=== PATIENT | male | born 1960 | race Caucasian/White ===

== ENCOUNTER 2023-12-14 06:47 | Outpatient (OUT) | payer BC, SELFPAY ==
--- NOTE | 2023-12-14 06:53 | US_ITS ---
The [address] [address] Patient Name: ROSARIO BUSBY MRN: [id number] date: 1960 Sex: M Assigned Patient Location: US Current Patient Location: US Accession/Order Number: [id number] Exam Date: 12/14/2023 07:00 Report Date: 12/14/2023 07:49 At the request of: MARIZOL SARABIA Procedure: US renal BI EXAM: US renal BI HISTORY: Hematuria, History Of Kidney Stones, Flank Pain COMPARISON: CT abdomen pelvis 04/18/2021. TECHNIQUE: Real-time ultrasound imaging of the kidneys and bladder. Findings: The right and left kidneys measure 11.8 and 11.3 cm. There is good corticomedullary differentiation bilaterally. There are nonobstructing bilateral renal stones. The largest is within the right and left kidneys measure 0.6 x 0.4 and 0.8 x 0.6 cm. No renal collecting system dilatation bilaterally. No focal mass or perinephric fluid collection. The bladder is fluid-filled with a prevoid volume of 184 mL. Unremarkable bladder. Impression 1. Nonobstructing bilateral renal stones. Electronically authenticated by: CASSANDRA RAMIREZ Date: 12/14/2023 07:49
--- NOTE | 2023-12-14 06:54 | XR_ITS ---
The [address] [address] Patient Name: ROSARIO BUSBY MRN: [id number] date: 1960 Sex: M Assigned Patient Location: US Current Patient Location: US Accession/Order Number: [id number] Exam Date: 12/14/2023 07:14 Report Date: 12/14/2023 10:45 At the request of: MARIZOL SARABIA Procedure: XR abdomen 1V EXAM: XR abdomen 1V HISTORY: Hematuria, History Of Kidney Stones, Flank Pain COMPARISON: None. TECHNIQUE: AP view of the abdomen. FINDINGS: Nonobstructive bowel gas pattern is noted. There is no suspicious calcification. The osseous structures are intact. XR/XR abdomen 1V IMPRESSION: Nonobstructive bowel gas pattern. No suspicious renal calcification. Electronically authenticated by: DEEJAY BROWN Date: 12/14/2023 10:45
== END 2023-12-14 06:48 | disposition home or self-care (01) ==
LOC: US 06:47
PROVIDERS: PCP Internal Medicine; Visit Provider Physician Assistant
DX: R31.9 Hematuria, unspecified (principal); Z87.442 Personal history of urinary calculi; R10.9 Unspecified abdominal pain; N20.0 Calculus of kidney
CPT/HCPCS: 74018; 76775

== ENCOUNTER 2024-01-05 13:46 | Emergency (ER) | payer BC, SELFPAY ==
[2024-01-05 13:50] VITALS: BP 142/90; PULSE 75; TEMP 36.6; O2SAT 99; BMI 28.2
[2024-01-05 14:26] LABS: Bilirubin Urine SMALL (NEGATIVE); Blood Urine LARGE (NEGATIVE); Clarity Urine CLOUDY (CLEAR); Color Urine DK. BROWN (YELLOW); Glucose Urine UA NEGATIVE (NEGATIVE); Ketones Urine NEGATIVE (NEGATIVE); Leukocyte Esterase Urine NEGATIVE (NEGATIVE); Nitrite Urine NEGATIVE (NEGATIVE); Protein Urine 100 mg/dL (NEG/TRACE)
[2024-01-05 14:29] LABS: Urine Microscopic Indicated YES
[2024-01-05 14:57] LABS: Bacteria Urine SMALL #/HPF (NONE SEEN); Cast Seen? NONE SEEN #/LPF (NONE SEEN); Crystals Seen? None Seen #/HPF (None Seen); Mucus Urine NONE SEEN (NONE SEEN); RBC Urine 75-100 #/HPF (0-2); Squamous Epithelial Cell Urine RARE #/LPF (NONE/RARE); Urine Culture Indicated YES
--- NOTE | 2024-01-05 21:22 | ED.GENADUL1 ---
HPI HPI - General Adult General Chief complaint: Urogenital-Male Stated complaint: BLOOD IN URINE Time Seen by Provider: 01/05/24 15:24 Source: patient Mode of arrival: walk-in Limitations: no limitations History of Present Illness HPI narrative: Patient is a 63-year-old male who is presenting to the Emergency Room with chief complaint of hematuria this morning. Patient states that he was doing some heavy lifting yesterday, patient had an episode of darker urine this morning And they cleared up On its own. Patient says this has happened twice in the past 4 years. patient believes that he does some heavy lifting, he will have some hematuria, and then it clears up. This is happened twice in the last 4 years. 4 years ago patient had hematuria, and a cystoscopy done by Dr. Case. Dr. Case had noticed the reflux in his ureter, and noticed infection at that time. Patient's chief concern today is that with his hematuria, he was hoping to check his urine for infection, But he ultimately wants to receive an antibiotic Because he is afraid of what happened 4 years ago, and also a work note because he did not go to work today. His 2 chief concern her work note and being prescribed an antibiotic. Patient initially was refusing any type of IV, lab work, CAT scan or any type of imaging. Patient has an appointment in Dr. Case office in February. Patient is also been having intermittent right groin pain for a long time, patient had a hernia incision repair over 20 years ago. Patient feels like he keeps getting his chronic right lower inguinal/groin pain blown off and has not seen a surgeon her specialist in the past 20 years. Patient has no new signs of hernia at this time. No pain to testicles. . Nurses note and vital signs reviewed and patient is not hypoxic. General: The patient appears well and in no apparent distress. Patient is resting comfortably on cart. Patient is not toxic, lethargic, or listless Skin: Warm, dry, no pallor noted. There is no rash noted. No petechiae, purpura. Head: Normocephalic, atraumatic Eye: Normal conjunctiva, no drainage, EOMI. PERRL Ears, Nose, Mouth, and Throat: oral mucosa is moist. Nares patent. Mouth without vesicles. Cardiovascular: Regular Rate and Rhythm, no murmur, gallop, rub Respiratory: Patient is in no distress, no accessory muscle use, lungs are clear to auscultation, no wheezing, rales or rhonchi Back: non-tender, no CVA tenderness bilaterally to percussion. No CT LS midline pain GI: soft, Patient has mild tenderness to palpation to the right inguinal area above his right ASIS, no signs of direct or indirect hernia. Patient has no tenderness to palpation of bilateral testicles, no signs of indirect hernia. Patient has no flank pain bilateral, no CVA tenderness bilateral. Otherwise patient has no tenderness to palpation, no masses appreciated. No rebound, guarding, or rigidity noted. No flank pain bilateral, No distention Musculoskeletal: Patient has full range of motion of all of the extremities, no motor, sensory, or focal neurological deficits Neurological: A&O x3, normal speech Psychiatric: Cooperative Related Data Allergies Allergy/AdvReac Type Severity Reaction Status Date / Time amoxicillin Allergy Severe Verified 01/05/24 13:50 cephalexin [From Keflex] AdvReac Severe Verified 01/05/24 13:50 Opioid HPI Opioid Management Most Recent Opioid Data: No Data to Display Exam Constitutional Vital Signs, click to edit/add: Last Vital Signs Temp 98 F 01/05/24 13:50 Pulse 75 01/05/24 13:50 Resp 20 01/05/24 13:50 BP 142/90 H 01/05/24 13:50 Pulse Ox 99 01/05/24 13:50 O2 Del Method Room Air 01/05/24 13:50 Course Vital Signs Vital signs: Vital Signs Temperature 98 F 01/05/24 13:50 Pulse Rate 75 01/05/24 13:50 Respiratory Rate 20 01/05/24 13:50 Blood Pressure 142/90 H 01/05/24 13:50 Pulse Oximetry 99 01/05/24 13:50 Oxygen Delivery Method Room Air 01/05/24 13:50 Temperature 98 F 01/05/24 13:50 Pulse Rate 75 01/05/24 13:50 Respiratory Rate 20 01/05/24 13:50 Blood Pressure 142/90 H 01/05/24 13:50 Pulse Oximetry 99 01/05/24 13:50 Oxygen Delivery Method Room Air 01/05/24 13:50 Medical Decision Making MDM Narrative Medical decision making narrative: Patient urine shows hematuria with no acute infection. Patient still is refusing any type of IV, lab work, CAT scans. Patient was referred to surgery for reevaluation for possible chronic hernia or groin strain. Patient allowed me to send a text to Dr. Case which I did About his name and is in the Emergency Room in hopes to follow-up sooner in the office then February. There is no acute indication for antibiotic at this time, patient understands. Patient was given a work note. Patient will follow-up with PCP or Dr. Case. Patient Returned back to the Emergency Room. Intractable pain, nausea, vomiting, difficulty urination or any other acute concerns. Patient is playful for help and time spent at bedside and listening to his right groin pain medicine chronic And feels like nobody done anything for 70 today. Lab Data Labs: Lab Results 01/05/24 Range/Units 12:45 Urine Color Dk. brown (YELLOW) Urine Clarity Cloudy A (CLEAR) Urine pH 8.0 (5.0-9.0) Ur Specific [place] 1.020 (1.005-1.025) Urine Protein 100 A (NEG/TRACE) mg/dL Urine Glucose (UA) Negative (NEGATIVE) mg/dL Urine Ketones Negative (NEGATIVE) mg/dL Urine Occult Blood Large A (NEGATIVE) Urine Nitrite Negative (NEGATIVE) Urine Bilirubin Small A (NEGATIVE) Urine Urobilinogen 1.0 (0.2-1.0) EU/dL Ur Leukocyte Esterase Negative (NEGATIVE) Urine RBC 75-100 A (0-2) #/HPF Urine WBC 2-5 A (NONE SEEN) #/HPF Ur Squamous Epith Cells Rare (NONE/RARE) #/LPF Urine Crystals None seen (None Seen) #/HPF Urine Bacteria Small A (NONE SEEN) #/HPF Urine Casts None seen (NONE SEEN) #/LPF Urine Mucus None seen (NONE SEEN) Ur Culture Indicated? Yes Discharge Plan Discharge Stand Alone Forms: Work/School Release, Portal Instructions Chief Complaint: Urogenital-Male Clinical Impression: Hematuria, Tobacco abuse, Chronic pain of right groin Patient Disposition: Home, Self-Care Time of Disposition Decision: 15:47 Condition: Fair Print Language: Belarusian Instructions: How to Stop Smoking (ED), Hematuria (ED), Groin Strain (ED), Groin Pain (ED) Additional Instructions: We had discussed right inguinal pain/strain, sports hernia, painless hematuria, possibility of bladder cancer with history of tobacco abuse. I have given Dr. Case your information to try and get you into the office sooner. Call the office to follow-up sooner than February for painless hematuria. Work note has been given. No acute indication for antibiotic at this time, urine culture is pending. Referrals: JILL SEE MD [Primary Care Provider] - 1 week Jorge Gordon MD [Physician] - 1 week Shawn Case MD [Physician] - 1 week Discharge Date/Time: 01/05/24 15:57
== END 2024-01-05 15:57 | disposition home or self-care (01) ==
PROVIDERS: Emergency Provider Emergency Medicine; PCP Internal Medicine
DX: R31.9 Hematuria, unspecified (principal); R10.31 Right lower quadrant pain; F17.210 Nicotine dependence, cigarettes, uncomplicated
CPT/HCPCS: 81001; 87086; 99283

== ENCOUNTER 2024-01-13 07:33 | Outpatient (OUT) | payer BC, SELFPAY ==
--- NOTE | 2024-01-13 07:48 | CT_ITS ---
[address] [address] Patient Name: ROSARIO BUSBY MRN: [id number] date: 1960 Sex: M Assigned Patient Location: LAB Current Patient Location: LAB Accession/Order Number: [id number] Exam Date: 01/13/2024 08:05 Report Date: 01/13/2024 08:56 At the request of: STEPHANIA BRADSHAW Procedure: CT abdomen pelvis wo/w con EXAMINATION: CT abdomen pelvis wo/w con HISTORY: Flank Pain, Hematuria , right groin pain COMPARISON: CT abdomen pelvis 04/18/2021 TECHNIQUE: Axial, Coronal, and Sagittal images were obtained without and/or with IV contrast as indicated by examination type. Dose reduction techniques were achieved by using automated exposure control and/or adjustment of mA and/or kV according to patient size and/or use of iterative reconstruction technique. FINDINGS: LUNG BASES: No visible pulmonary or pleural disease. LIVER: No enlargement, atrophy, suspicious density, or significant focal lesion. BILIARY: No dilatation or calcification. PANCREAS: No lesion, fluid collection, or abnormal duct dilatation. SPLEEN: No enlargement or focal lesion. ADRENALS: No mass or enlargement. KIDNEYS: 1 mm nonobstructing stone within right kidney. 5 mm nonobstructing stone within left kidney. No ureteral stones. No mass, cyst, or significant atrophy. BOWEL/MESENTERY: Diverticulosis of distal colon without acute inflammatory changes. No visible mass, obstruction, or bowel wall thickening. Normal appendix. AORTA/VASCULAR: No aneurysm or dissection. RETROPERITONEUM: No mass or adenopathy. LYMPH NODES: No adenopathy. URINARY BLADDER: No visible focal wall thickening, lesion, or calculus. PELVIC ORGANS: No visible mass. Pelvic organs appropriate for patient age. ABDOMINAL WALL: Small fat filled left inguinal hernia without strangulation. Tiny fat filled umbilical hernia without strangulation. BONES: No bony lesion or fracture. OTHER: Negative. CT/CT abdomen pelvis wo/w con IMPRESSION: 1. Bilateral nonobstructing nephrolithiasis. 2. No acute or suspicious right groin findings to account for patient's symptoms. Electronically authenticated by: JOYCELYN BARR Date: 01/13/2024 08:56
[2024-01-13 07:50] LABS: Basophils Absolute Auto 0.1 10^3/uL (0.0-0.1); Basophils Percent Auto 0.8 % (0.2-2.0); Eosinophils Absolute Auto 0.5 10^3/uL (0.0-0.7); Hematocrit 44.5 % (42.0-54.0); Hemoglobin 14.8 g/dL (14.0-18.0); Immature Granulocytes Abs Auto 0.06 10^3/uL (0.00-0.03); Immature Granulocytes Pct Auto 0.4 % (0.0-0.5); Lymphocytes Absolute Auto 3.1 10^3/uL (1.2-3.8); Lymphocytes Percent Auto 19.3 % (20.5-60.0); Mean Corpuscular HGB Conc 33.3 g/dL (29.9-35.2); Mean Corpuscular Hemoglobin 30.5 pg (25.9-34.0); Mean Corpuscular Volume 91.8 fL (80.0-94.0); Mean Platelet Volume 9.2 fL (9.5-13.5); Monocytes Absolute Auto 1.4 10^3/uL (0.3-0.8); Monocytes Percent Auto 8.8 % (1.7-12.0); Neutrophils Absolute Auto 10.7 10^3/uL (1.4-6.5); Neutrophils Percent Auto 67.7 % (43.0-75.0); Platelet Count 276 10^3/uL (150-450); Red Blood Count 4.85 10^6/uL (4.70-6.10); Red Cell Distribution Width 14.7 % (11.0-15.0); White Blood Count 15.8 10^3/uL (4.0-11.0)
[2024-01-13 07:55] LABS: Anion Gap 13.4; BUN Creatinine Ratio 13.9; Calcium 9.1 mg/dL (8.5-10.1); Carbon Dioxide 27.4 mmol/L (21.0-32.0); Chloride 101 mmol/L (98-107); Estimated GFR (African America >60 (>=60); Estimated GFR (Non-African Ame >60 (>=60); Glucose 99 mg/dL (74-106); Potassium 4.8 mmol/L (3.5-5.1); Sodium 137 mmol/L (136-145)
== END 2024-01-13 07:34 | disposition home or self-care (01) ==
LOC: LAB 07:34
PROVIDERS: PCP Internal Medicine; Visit Provider Nurse Practitioner
DX: R10.9 Unspecified abdominal pain (principal); R31.9 Hematuria, unspecified; N20.0 Calculus of kidney
CPT/HCPCS: 36415; 74178; 80048; 85025; Q9967

== ENCOUNTER 2024-01-25 09:20 | Outpatient (OUT) | payer BC, SELFPAY ==
--- NOTE | 2024-01-25 10:01 | ECG_ITS ---
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
--- NOTE | 2024-01-25 10:20 | XR_ITS ---
The [address] [address] Patient Name: ROSARIO BUSBY MRN: [id number] date: 1960 Sex: M Assigned Patient Location: [facility] Current Patient Location: [facility] Accession/Order Number: [id number] Exam Date: 01/25/2024 10:33 Report Date: 01/25/2024 11:11 At the request of: CHERYL HENDERSON Procedure: XR chest 2V EXAMINATION: XR chest 2V HISTORY: Preop exam COMPARISON: 05/13/2021 TECHNIQUE: PA and lateral FINDINGS: LUNGS: Low lung volumes. Minimal linear opacities in the right lower lobe and lingula. Focal nodule in the lung base seen only on the lateral projection, size and density suggests granuloma VASCULATURE: No increased pulmonary vasculature. PLEURA: No pneumothorax, effusion, or pleural thickening. CARDIAC: No cardiomegaly or cardiac silhouette abnormality. MEDIASTINUM: No visible mass or adenopathy. BONES: No fracture or visible bone lesion. OTHER: Negative. XR/XR chest 2V IMPRESSION: Minimal stable linear opacities, scar favored Electronically authenticated by: EMMANUEL ROMEO Date: 01/25/2024 11:11
--- NOTE | 2024-01-25 10:36 | PM.PRESUREVA ---
History of Present Illness History of Present Illness Chief complaint: right kidney stone Narrative: Patient presents for preadmission testing. Please see HPI from Dr. Case dated 01/21/2024. Review of Systems ROS Narrative Please see ROS from Dr. Case dated 01/21/2024. PFSH PFSH Medical History (Updated 01/25/24 @ 10:38 by Zina Chris NP) Flank pain ?R10.9 - Unspecified abdominal pain (ICD-10) Seasonal allergies ?J30.2 - Other seasonal allergic rhinitis (ICD-10) Arthritis ?M19.90 - Unspecified osteoarthritis, unspecified site (ICD-10) Back pain ?M54.9 - Dorsalgia, unspecified (ICD-10) Pneumonia ?J18.9 - Pneumonia, unspecified organism (ICD-10) Restless leg ?G25.81 - Restless legs syndrome (ICD-10) Chronic obstructive pulmonary disease ?J44.9 - Chronic obstructive pulmonary disease, unspecified (ICD-10) Kidney stones ?N20.0 - Calculus of kidney (ICD-10) GERD (gastroesophageal reflux disease) ?K21.9 - Gastro-esophageal reflux disease without esophagitis (ICD-10) S/P extracorporeal shock wave therapy ?Z98.890 - Other specified postprocedural states (ICD-10) Surgical History (Updated 01/25/24 @ 10:19 by Zina Chris NP) History of colonoscopy ?Z98.890 - Other specified postprocedural states (ICD-10) History of hernia repair ?Z98.890 - Other specified postprocedural states (ICD-10) ?Z87.19 - Personal history of other diseases of the digestive system (ICD-10) S/P cystourethroscopy with dilation of urethral stricture ?Z98.890 - Other specified postprocedural states (ICD-10) S/P cystoscopy ?Z98.890 - Other specified postprocedural states (ICD-10) S/P ureteral stent placement ?Z96.0 - Presence of urogenital implants (ICD-10) Family History (Updated 01/25/24 @ 10:19 by Zina Chris NP) Other Family history of COPD (chronic obstructive pulmonary disease) Family history of bone cancer Family history of heart disease Family history of myocardial infarction Family history of stroke Social History (Updated 01/25/24 @ 10:14 by Zina Chris NP) Within the past year, how often did you have a drink containing alcohol: 2-3 times a week Within the past year, how many standard drinks containing alcohol did you have on a typical day: 3 or 4 Smoking status: Current every day smoker What tobacco products do you use: cigarettes Packs per day: 1 Years smoked: 40 Smoking pack-years: 40.00 Non-prescribed substance use: cannabis (any form) Previous occupational history: [employer] Highest level of school completed/degree received: high school graduate Meds Home Medications and Allergies Home Medications ?Medication ?Instructions ?Recorded ?Confirmed ?Type budesonide 160 mcg-glycopyr 9 2 inh inhalation DAILY 01/25/24 01/25/24 History mcg-formot 4.8 mcg/actuation HFA inhaler (Breztri Aerosphere) oxcarbazepine 300 mg tablet 300 mg PO BID 01/25/24 01/25/24 History (Trileptal) rosuvastatin 10 mg tablet (Crestor) 10 mg PO DAILY 01/25/24 01/25/24 History Allergies Allergy/AdvReac Type Severity Reaction Status Date / Time amoxicillin Allergy Severe Rash Verified 01/25/24 10:11 cephalexin [From Keflex] Allergy Severe Rash Verified 01/25/24 10:11 Sulfa (Sulfonamide Allergy Rash Verified 01/25/24 10:11 Antibiotics) codeine AdvReac Nausea Verified 01/25/24 10:13 Exam Narrative Exam Narrative: Constitutional: Awake, alert, comfortable, well-appearing, nontoxic, interactive, vital signs as charted Head: Normocephalic, atraumatic Neck: Supple, normal appearance, normal range of motion, no meningeal signs, no lymphadenopathy Respiratory: No respiratory distress, breath sounds clear Cardiovascular: Regular rate and rhythm, strong and regular heart tones Abdomen: Nontender, normal bowel sounds, soft, mild right CVA tenderness Musculoskeletal: Normal gait, no swelling or edema Skin: No rashes or induration, no lesions, only visible skin inspected Neuro: No neurological deficits, normal sensation Psychiatric: Oriented ?3, normal affect Assessment and Plan Assessment and Plan (1) Kidney stones: (2) Hematuria: (3) Flank pain: Plan Cystoscopy, right retrograde, ureteroscopy, possible holmium laser, possible stent placement scheduled with Dr. Case 02/03/2024.
[2024-01-25 10:54] LABS: Basophils Absolute Auto 0.1 10^3/uL (0.0-0.1); Basophils Percent Auto 0.8 % (0.2-2.0); Eosinophils Absolute Auto 0.3 10^3/uL (0.0-0.7); Eosinophils Percent Auto 2.2 % (0.9-7.0); Hematocrit 43.6 % (42.0-54.0); Hemoglobin 14.9 g/dL (14.0-18.0); Immature Granulocytes Abs Auto 0.07 10^3/uL (0.00-0.03); Immature Granulocytes Pct Auto 0.5 % (0.0-0.5); Lymphocytes Absolute Auto 2.5 10^3/uL (1.2-3.8); Lymphocytes Percent Auto 17.9 % (20.5-60.0); Mean Corpuscular HGB Conc 34.2 g/dL (29.9-35.2); Mean Corpuscular Hemoglobin 30.8 pg (25.9-34.0); Mean Corpuscular Volume 90.3 fL (80.0-94.0); Mean Platelet Volume 9.1 fL (9.5-13.5); Monocytes Percent Auto 7.5 % (1.7-12.0); Neutrophils Absolute Auto 9.8 10^3/uL (1.4-6.5); Neutrophils Percent Auto 71.1 % (43.0-75.0); Platelet Count 361 10^3/uL (150-450); Red Blood Count 4.83 10^6/uL (4.70-6.10); Red Cell Distribution Width 14.5 % (11.0-15.0); White Blood Count 13.7 10^3/uL (4.0-11.0)
[2024-01-25 10:58] LABS: Anion Gap 12.2; BUN Creatinine Ratio 11.2; Calcium 9.4 mg/dL (8.5-10.1); Carbon Dioxide 25.7 mmol/L (21.0-32.0); Chloride 103 mmol/L (98-107); Estimated GFR (African America >60 (>=60); Estimated GFR (Non-African Ame >60 (>=60); Glucose 107 mg/dL (74-106); Potassium 3.9 mmol/L (3.5-5.1); Sodium 137 mmol/L (136-145)
[2024-01-25 11:01] LABS: Partial Thromboplastin Time 29.5 sec (22.3-36.2); Prothrombin Time 9.8 sec (9.0-11.6)
[2024-01-25 11:05] LABS: INR <0.93
== END 2024-01-25 09:21 | disposition home or self-care (01) ==
LOC: PST 09:20
PROVIDERS: PCP Internal Medicine; Visit Provider Urology
DX: Z01.810 Encounter for preprocedural cardiovascular examination (principal); Z01.812 Encounter for preprocedural laboratory examination; Z01.818 Encounter for other preprocedural examination; R31.0 Gross hematuria; N20.0 Calculus of kidney
CPT/HCPCS: 36415; 71046; 80048; 85025; 85610; 85730; 93005; G0463

== ENCOUNTER 2024-02-03 07:49 | Day surgery (SDC) | payer BC, SELFPAY ==
[2024-01-25 10:33] VITALS: BP 126/86; PULSE 72; TEMP 36.3; O2SAT 96; BMI 28.2
[2024-02-03] VITALS (8 sets, daily range): BP systolic 115–138; BP diastolic 81–91; PULSE 64–74; TEMP 35.9–36.5; O2SAT 93–98; BMI 27.8
--- NOTE | 2024-02-03 | XR_ITS ---
The [address] [address] Patient Name: ROSARIO BUSBY MRN: [id number] date: 1960 Sex: M Assigned Patient Location: [facility] Current Patient Location: Accession/Order Number: [id number] Exam Date: 02/03/2024 09:20 Report Date: 02/04/2024 10:02 At the request of: CHERYL HEDNERSON Procedure: XR urethrogram retrograde EXAM: XR urethrogram retrograde HISTORY: BILATERAL RETROGRADE, RIGHT STENT PLACEMENT COMPARISON: None. TECHNIQUE: FINDINGS: Intraoperative spot fluoroscopic images demonstrate retrograde filling of the right and left ureter and upper collecting systems; no appreciable stone, obstruction, stricture, or abnormal dilation. Stent placement with right ureter with proximal end coiled in the renal pelvis and distal end in urinary bladder. XR/XR urethrogram retrograde IMPRESSION: 1. Right ureteral stent placement appearing in good position. Electronically authenticated by: JOYCELYN BARR Date: 02/04/2024 10:02
--- OUTSIDE RECORDS SUMMARY | 2024-02-03 07:52 | XMS_ITS | CCD ---
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 Role Phone ESA, DR MELCHOR Primary Care Unavailable CASE, DR LUNA Attending Unavailable CASE, DR LUNA Consulting Unavailable CASE, DR LUNA Admitting Unavailable ZIEBER, DR JOYCELYN Kessler Consulting Unavailable CASE, DR LUNA Attending Unavailable VALONE, DR MELCHOR Primary Care Unavailable CASE, DR LUNA Consulting Unavailable CASE, DR LUNA Admitting Unavailable JUSTYNA, BRENDA Consulting Unavailable CASE, DR LUNA Attending Unavailable CASE, DR LUNA Admitting Unavailable VALONE, DR MELCHOR Primary Care Unavailable VALONE, DR MELCHOR Primary Care Unavailable CASE, DR LUNA Attending Unavailable CASE, DR LUNA Consulting Unavailable CASE, DR LUNA Admitting Unavailable WEST, DR EMMANUEL Reilly Consulting Unavailable ROSS, SAE Admitting Unavailable ROSS, SAE Attending Unavailable ROSS, SAE Consulting Unavailable VALONE, DR MELCHOR Primary Care Unavailable REQUEST, NONE LISTED Admitting Unavaila ble REQUEST, NONE LISTED Attending Unavaila ble REQUEST, NONE LISTED Consulting Unavaila ble VALONE, DR MELCHOR Primary Care Unavailable REQUEST, NONE LISTED Admitting Unavaila ble REQUEST, NONE LISTED Attending Unavaila ble REQUEST, NONE LISTED Consulting Unavaila ble VALONE, DR MELCHOR Primary Care Unavailable VALONE , JILL Primary Care Physician Shawn CASE Attending Unavailable CASE, Shawn Kessler Attending Unavailable CASE, Shawn Kessler Admitting Unavailable CASE, Shawn Kessler Attending Unavailable CASE, Shawn Kessler Attending Unavailable CASE, Shawn Kessler Attending Unavailable CASE, Shawn Kessler Attending Unavailable Allergies Allergy Classification Reported Allergen(s) Allergy Type Date of Onset Reaction(s) Facility (3 sources) Amoxicillin; Translations: [amoxicillin] Drug Allergy [address] [facility] Repository (2 sources) Cephalexin; Translations: [cephalexin] Drug Allergy [facility] Repository (3 sources) Codeine; Translations: [codeine] Drug Allergy [address] [facility] Repository (2 sources) Sulfonamides (Antibiotic) Drug allergy (disorder) [address] [facility] Repository (4 sources) Amoxicillin; Translations: [amoxicillin] Drug Allergy 6 Unknown [facility] (4 sources) Cephalexin; Translations: [cephalexin] Drug Allergy Unknown [facility] (4 sources) Codeine; Translations: [codeine] Drug Allergy 6 Unknown [facility] (5 sources) Pollen; Translations: [Pollen] Allergy to substance Unknown (qualifier value) [facility] (5 sources) Sulfamethoxazole ; Translations: [sulfamethoxazol e] Drug Allergy Unknown (qualifier value) [facility] (5 sources) Sulfonamides; Translations: [sulfonamides] Drug allergy Unknown (qualifier value) [facility] (5 sources) Grass; Translations: [Grass] Allergy to substance Unknown (qualifier value) [facility] Medications Current Medications Medication Drug Class(es) Dates Sig (Normalized) Sig (Original) benzonatate 100 mg oral capsule (1 source) Non-narcotic Antitussive Start: 06-30-2019 take 1 mg by mouth three times daily Tessalon 100 mg Cap mg cap(s), Oral, TID, Refills(s) 0 Start Date: 06/30/19 Status: Ordered ketorolac tromethamine 10 mg oral tablet (1 source) Nonsteroidal Anti-inflammatory Drug, Cyclooxygenase Inhibitor Start: 05-23-2021 take 1 tablet by mouth every six hours as needed for pain ketorolac 10 mg Tab 10 mg = 1 tab(s), Oral, q6hr, PRN for pain, # 10 tab(s), Refills(s) 0, called to pharmacy (Rx) Start Date: 05/23/21 Status: Ordered Trileptal (4 sources) Anti-epileptic Agent Start: 06-30-2019 Trileptal Oral, BID, Refills(s) 0 Start Date: 06/30/19 Status: Ordered Crestor (4 sources) HMG-CoA Reductase Inhibitor Start: 06-20-2019 Crestor Oral, Daily, Refills(s) 0 Start Date: 06/20/19 Status: Ordered sildenafil 100 mg oral tablet (4 sources) Phosphodiesterase 5 Inhibitor Start: 07-28-2021 sildenafil 100 mg Tab 100 mg = 1 tab(s), Oral, As Directed, 1 hour before sexual activity, # 30 tab(s), Refills(s) 2, Pharmacy: [facility], 170.2, cm, 07/28/21 10:01:00 EDT, Height/Length Dosing, 89, kg, 07/28/21 10:01:00 EDT, Weight Dosing Start Date: 07/28/21 Status: Ordered Problems Active Problems Problem Classification Problem Date Documented Da te Episodic/Chronic Abdominal pain (5 sources) Unspecified abdominal pain; Translations: [Flank pain] Onset: 05-26-2021 06-20-2019 Episodic Calculus of urinary tract (15 sources) Calculus of kidney; Translations: [Personal history of urinary calculi] Onset: 04-29-2021 07-05-2020 Episodic Disorders of lipid metabolism (5 sources) Hyperlipidemia, unspecified; Translations: [Hyperlipidemia] Onset: 06-17-2021 04-30-2021 Chronic Esophageal disorders (1 source) Gastro-esophageal reflux disease without esophagitis; Translations: [GERD WITHOUT ESOPHAGITIS] Onset: 05-26-2021 Chronic Genitourinary symptoms and ill-defined conditions (16 sources) Gross hematuria; Translations: [Blood in urine] Onset: 04-29-2021 Episodic Hyperplasia of prostate (7 sources) Benign prostatic hyperplasia without lower urinary tract symptoms; Translations: [Benign prostatic hyperplasia with lower urinary tract symptoms] Onset: 05-26-2021 06-30-2019 Chronic Immunizations and screening for infectious disease (4 sources) Encounter for immunization; Translations: [ENCOUNTER FOR IMMUNIZATION] Onset: 08-19-2021 Episodic Inflammatory conditions of male genital organs (4 sources) Prostatitis 06-20-2019 Episodic Mood disorders (5 sources) Major depressive disorder, single episode, unspecified; Translations: [Depressive disorder] Onset: 06-17-2021 04-30-2021 Chronic Other diseases of bladder and urethra (1 source) Unspecified urethral stricture, male, unspecified site; Translations: [UNSP URETHRAL STRCT MALE UNSP SITE] Onset: 06-17-2021 Episodic Other diseases of bladder and urethra (4 sources) Urethral stricture 07-05-2020 Episodic Other male genital disorders (2 sources) Male erectile dysfunction, unspecified; Translations: [Erectile dysfunction] Onset: 06-17-2021 Chronic Other male genital disorders (4 sources) Impotence 07-05-2020 Chronic Residual codes; unclassified (4 sources) Chronic back pain 06-20-2019 Episodic Substance-related disorders (6 sources) Nicotine dependence, cigarettes, uncomplicated; Translations: [Smoker] Onset: 06-17-2021 07-05-2020 Chronic Past or Other Problems Problem Classification Problem Date Documented Da te Episodic/Chronic Other aftercare (1 source) 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; Translations: [OTH AUDIOLOGY DOCTOR CURRENT DRUG THERAPY] Onset: 05-26-2021 Episodic Other diseases of kidney and ureters (1 source) Crossing vessel and stricture of ureter without hydronephrosis; Translations: [CROSSING VES STRICT URETER W/O HN] Onset: 05-26-2021 Episodic Residual codes; unclassified (1 source) Insomnia, unspecified; Translations: [INSOMNIA UNSPECIFIED] Onset: 05-26-2021 Episodic Results Test Name Value Interpretation Reference Range Facility ECG 12-Leadon 01-28-2024 ECG 12-Lead [id number] F [facility] Pre-Certification Formon Pre-Certification Form [id number] F [facility] Lab Reportson 01-26-2024 Lab Reports [id number]#[id number] F [facility] Lab Reports [id number]#[id number] F [facility] RAD - MISCon 01-26-2024 RAD - MISC [id number]#[id number] [facility] Ambulatory Visit Summaryon 0 01-21-2024 Ambulatory Visit Summary ROSARIO BUSBY :1960 Visit Date:01/21/2024 Ambulatory Visit Instructions Your Diagnosis Kidney stones Gross hematuria BPH with urinary obstruction Impotence Smoker Your Care Team Attending Physician - BEATRIZ ROCHE, Shawn Kessler Primary Care Physician - JILL SEE JR, DO This Is Your Medications List sildenafil (sildenafil 100 mg Tab) Contact prescribing physician if questions or concerns oxcarbazepine (Trileptal) rosuvastatin (Crestor) Procedures Performed Cystoscopy (05/22/2021), Cystoscopy (04/30/2021), Cystourethroscopy with dilation of urethral stricture (07/04/2015), ESWL of kidney (02/07/2015), Cystoscopic removal of ureteric stent (10/09/2014), Cystoscopic ureteroneocystostomy with insertion of ureteral stent (08/30/2014), Cystourethroscopy with dilation of urethral stricture (02/24/2013), U/D - Urethral dilatation (07/07/2011), Transurethral resection of prostate (11/27/2010), Urodynamics (05/30/2010), Cystoscopy (04/15/2010). Discharge Vitals Heart Rate (Peripheral) 88 Respiratory Rate 16 Blood Pressure 125/86 Height 170.2 cm Height 67 in Weight 89.4 kg Weight 196.68 lb BMI 30.86 What to do next Scheduled Follow-Up Appointments Wednesday 2:30 PM EDT With: BEATRIZ ROCHE, Shawn Kessler Where: [facility] Consent for Procedure/Surger yon 01-21-2024 Consent for Procedure/Surgery [id number]#[id number] F [facility] Patient Educationon 01-21-20 Patient Education Pulmonary Medicine Steps to Quit Smoking Smoking tobacco is the leading cause of preventable . It can affect almost every organ in the body. Smoking puts you and those around you at risk for developing many serious chronic diseases. Quitting smoking can be very challenging. Do not get discouraged if you are not successful the first time. Some people need to make many attempts to quit before they achieve long-term success. Do your best to stick to your quit plan, and talk with your health care provider if you have any questions or concerns. How do I get ready to quit? When you decide to quit smoking, create a plan to help you succeed. Before you quit: ? Pick a date to quit. Set a date within the next 2 weeks to give you time to prepare. ? Write down the reasons why you are quitting. Keep this list in places where you will see it often. ? Tell your family, friends, and co-workers that you are quitting. Support from people you are close to can make quitting easier. ? Talk with your health care provider about your options for quitting smoking. ? Find out what treatment options are covered by your health insurance. ? Identify people, places, things, and activities that make you want to smoke (triggers). Avoid them. What first steps can I take to quit smoking? ? Throw away all cigarettes at home, at work, and in your car. ? Throw away smoking accessories, such as ashtrays and lighters. ? Clean your car. Make sure to empty the ashtray. ? Clean your home, including curtains and carpets. What strategies can I use to quit smoking? Talk with your health care provider about combining strategies, such as taking medicines while you are also receiving in-person counseling. Using these two strategies together makes you more likely to succeed in quitting than if you used either strategy on its own. If you are or , talk with your health care provider about finding counseling or other support strategies to quit smoking. Do not take medicine to help you quit smoking unless your health care provider tells you to. Quit right away ? Quit smoking completely, instead of gradually reducing how much you smoke over a period of time. Stopping smoking right away may be more successful than gradually quitting. ? Attend in-person counseling to help you build problem-solving skills. You are more likely to succeed in quitting if you attend counseling sessions regularly. Even short sessions of 10 minutes can be effective. Take medicine You may take medicines to help you quit smoking. Some medicines require a prescription. You can also purchase uore-sor-zsbxemh medicines. Medicines may have nicotine in them to replace the nicotine in cigarettes. Medicines may: ? Help to stop cravings. ? Help to relieve withdrawal symptoms. Your health care provider may recommend: ? Nicotine patches, gum, or lozenges. ? Nicotine inhalers or sprays. ? Non-nicotine medicine that you take by mouth. Find resources Find resources and support systems that can help you quit smoking and remain smoke-free after you quit. These resources are most helpful when you use them often. They include: ? Online chats with a counselor. ? Telephone quitlines. ? Printed self-help materials. ? Support groups or group counseling. ? Text messaging programs. ? Mobile phone apps or applications. Use apps that can help you stick to your quit plan by providing reminders, tips, and encouragement. Examples of free services include Quit Guide from the CDC and smokefree.gov What can I do to make it easier to quit? ? Reach out to your family and friends for support and encouragement. Call telephone quitlines, such as 5-117-DZUN-NOW, reach out to support groups, or work with a counselor for support. ? Ask people who smoke to avoid smoking around you. ? Avoid places that trigger you to smoke, such as bars, parties, or smoke-break areas at work. ? Spend time with people who do not smoke. ? Lessen the stress in your life. Stress can be a smoking trigger for some people. To lessen stress, try: ? Exercising regularly. ? Doing deep-breathing exercises. ? Doing yoga. ? Meditating. What benefits will I see if I quit smoking? Over time, you should start to see positive results, such as: ? Improved sense of smell and taste. ? Decreased coughing and sore throat. ? Slower heart rate. ? Lower blood pressure. ? Clearer and healthier skin. ? The ability to breathe more easily. ? Fewer sick days. Summary ? Quitting smoking can be very challenging. Do not get discouraged if you are not successful the first time. Some people need to make many attempts to quit before they achieve long-term success. ? When you decide to quit smoking, create a plan to help you succeed. ? Quit smoking right away, not slowly over a period of time. ? Find resources and support systems that can help you quit smoki (more content not included)... Normal [facility] Urology Office/Clinic Noteon 01-21-2024 Urology Office/Clinic Note Chief Complaint gross hematuria HPI Staff Pt last seen in our office 07/28/21 by PRW due to Kidney Stone, Gross Hematuria, BPH & Impotence. At that time pt was taking Sildenafil 100mg PRN. Pt had called our office 12/10/23 c/o blood in urine & possible kidney Stone. Pt states that he notices the blood when he lifts anything remotely heavy but is also having some pain on the right side behind his scrotum whenever he bends forward. Pt called our office again on 01/05/24 c/o gross hematuria. [facility] ER 01/05/24 CC: hematuria NEG C&S CT done 01/13/24 showed bilateral non obstructing stones Dysuria: no Incomplete bladder emptying: no Hematuria: pt has seen any blood Frequency: every hour and a half Urgency: no Nocturia: pt does not get up Stream: pt has a good stream no straining Leaking: no Post void dripping: no Wearing pads/ Depends: no Urge incontinence: no Stress incontinence: no Incontinence without Sensory Awareness: no Abdominal pain: right sided groin pain Flank pain: no Sexual complaints: no History of Present Illness Tests reviewed: reviewed UA, KUB, FREDDIE, CT, ER notes, and culture. I have reviewed the previous health record information and history for this patient from Dr. Case. I have reviewed and verified the staff HPI to be accurate for this encounter. There have been no associated fever, chills, flank pain, or blood in the urine. Denies any urinary infections since last encounter. Review of Systems PHQ Score Initial Depression Screen Score: 0 SCORE ROS - Provider Constitutional: denies weight loss, denies hot flashes. Eyes: denies eye problems. Gastrointestinal: denies nausea, denies vomiting. Cardiovascular: denies chest pain or angina. Integumentary: no dryness Musculoskeletal: denies musculoskeletal symptoms. ENMT: denies otolaryngeal symptoms. Respiratory: no shortness of breath. Heme/Lymph: denies easy bleeding tendency, denies easy bruising tendency. Psychiatric: no confusion, no anxiety. Genitourinary: See HPI. Physical Exam Vitals & Measurements HR: 88(Peripheral) RR: 16 BP: 125/86 HT: 67 in HT: 170.2 cm WT: 89.4 kg WT: 196.68 lb BMI: 30.86 General Appearance: alert, no distress, well nourished, well developed male. Flank Pain: moderate. Prostate: normal prostate, estimated weight 30 gms, no hard nodule observed. Assessment/Plan Last seen by Dr. Case 07/28/2021. 1. Kidney stones (N20.0: Calculus of kidney) S/p R holmium laser 05/22/21. Pt called our office 12/10/23 c/o blood in urine and possible kidney stone. Pt states that he notices the blood when he lifts anything remotely heavy but is also having some pain on the right side behind his scrotum whenever he bends forward. KUB 12/14/23 neg for obvious stones. Renal US 12/14/23 nonobstructing bilateral renal stones. Largest within the right and left kidneys measures 0.6 x 0.4 and 0.8 x 0.6 cm. No renal collecting system dilatation bilaterally. Pt presented to [facility] ER 01/05/24 with gross hematuria. Pt refused any type of IV, lab work, or CT scan. Neg culture. CT AP w/wo IV con 01/13/24 a 1 mm nonobstructing stone within right kidney. 5 mm nonobstructing stone within left kidney. No ureteral stones. Neg for bladder masses or filling defects. -Will schedule cysto,R ureteroscopy, poss R stent, poss UD, poss stone manipulation. The procedure risks, benefits, details, and treatment alternatives have been discussed. These include the need for additional procedures, bleeding, infection, injury to the ureter, moderate to severe bladder irritation from the stent (with frequent urination, urgency, urinary leakage), moderate flank discomfort, among others. Stent removal or changes may also be required in the future. Full informed consent has been obtained. Will order Mac anesthesia. 2. Gross hematuria (R31.0: Gross hematuria) S/p cysto 04/30/21. CT 04/18/21. Bilat renal washing 05/22/21 neg for malignancy. UA today neg. See #1. 3. BPH with urinary obstruction (N40.1: Benign prostatic hyperplasia with lower urinary tract symptoms) PSA: 06/2020 - 2.1 07/14/21 - 1.5 & 14.7% Not taking any BPH meds. MABEL: 30g, no nodules. 4. Impotence (N52.9: Male erectile dysfunction, unspecified) Taking Sildenafil 100mg prn. 5. Smoker (F17.200: Nicotine dependence, unspecified, uncomplicated) Increased risk of urothelial ca. Smoking cessation provided with patient education. See #2. Follow-up With When Contact Information BEATRIZ ROCHE, Shawn Kessler, [address] [place] [address]- Additional Instructions: Scheduling surgery Patient Education Steps to Quit Smoking Ureteroscopy I, Marium Maurer, personally scribed for Dr. Case on 01/21/2024 11:22:01. . Documentation recorded by the scribe, Marium Maurer, accurately reflects the services(s) I performed and decisions made by me. Authenticated by Dr. Case on 01/21/2024 11: (more content not included)... Normal [facility] Comment on above: Result Comment: Elec tronically Signed By: Shawn CASE MD\.br\Date and Time Signed: 01/21/24 11:25 EDT\.br\Electronically Co-Signed By: Marium Maurer\.br\Date and Time Co-Signed: 01/21/24 11:22 EDT RAD - MISCon 12-14-2023 RAD - MISC [id number] F Normal [facility] RAD - Ultrasound Reporton RAD - Ultrasound Report [id number] F Normal [facility] CALCULI, URINARYon 1 2,8 Dihydroxyadenine Normal [facility] Comment on above: Performed By: #### C ALCULI #### [facility] [address] [address] Maco William Ammonium Acid Urate Normal [facility] Comment on above: Performed By: #### C ALCULI #### [facility] [address] [id number] Maco William Bilirubin Ql (U) Normal [facility] Comment on above: Performed By: #### C ALCULI #### [facility] [address] [address] Maco Nataliia Ca Oxalate Dihydrate 80 % Normal [facility] Comment on above: Performed By: #### C ALCULI #### [facility] [address] [address] Maco Nataliia CaHPO4 (Brushite) Normal [facility] Comment on above: Performed By: #### C ALCULI #### [facility] [address] [address] Maco Nataliia Calcium Bilirubinate Normal [facility] Comment on above: Performed By: #### C ALCULI #### [facility] [address] [address] Maco Nataliia Calcium Carbonate Normal [facility] Comment on above: Performed By: #### C ALCULI #### [facility] [address] [address] Maco Nataliia Calcium Oxalate Monohydrate 20 % Normal [facility] Comment on above: Performed By: #### C ALCULI #### [facility] [address] [address] Maco Nataliia Calcium Palmitate Normal [facility] Comment on above: Performed By: #### C ALCULI #### [facility] [address] [address] Maco Nataliia Calcium Phosphate Normal [facility] Comment on above: Performed By: #### C ALCULI #### [facility] [address] [address] Maco Nataliia Calcium Stearate Normal [facility] Comment on above: Performed By: #### C ALCULI #### [facility] [address] [address] Maco Nataliia Carbonate Apatite Normal [facility] Comment on above: Performed By: #### C ALCULI #### [facility] [address] [address] Maco Nataliia Cellular Material Normal [facility] Comment on above: Performed By: #### C ALCULI #### [facility] [address] [address] Maco Nataliia Cholesterol Normal [facility] Comment on above: Performed By: #### C ALCULI #### [facility] [address] [address] Maco Nataliia Color (U) See Normal [facility] Comment on above: Performed By: #### C ALCULI #### [facility] [address] [address] Maco Nataliia Comment Normal [facility] Comment on above: Performed By: #### C ALCULI #### [facility] [address] [address] Maco Nataliia Comment: Comment Normal [facility] Comment on above: Result Comment: Marsha elena questions regarding Calculi Analysis contact [facility] at: [phone]. Performed By: #### C ALCULI #### [facility] [address] [place] [address] Maco Nataliia Composition Comment Normal [facility] Comment on above: Result Comment: Perc entage (Represents the % composition) Performed By: #### C ALCULI #### [facility] [address] [place] [address] Maco Nataliia Cystine Normal [facility] Comment on above: Performed By: #### C ALCULI #### [facility] [address] [place] [address] Maco Nataliia Disclaimer: Comment Normal [facility] Comment on above: Result Comment: This test was developed and its performance characteristics determined by [facility]. It has not been cleared or approved by the Food and Drug Administration. Performed By: #### C ALCULI #### [facility] [address] [place] [address] Maco Nataliia Dried Blood Normal [facility] Comment on above: Performed By: #### C ALCULI #### [facility] [address] [place] [address] Maco Nataliia Drug or Metabolite Normal [facility] Comment on above: Performed By: #### C ALCULI #### [facility] [address] [place] [address] Maco Nataliia Hydroxyapatite Normal [facility] Comment on above: Performed By: #### C ALCULI #### [facility] [address] [address] Maco Nataliia Mg NH4 PO4 (Struvite) Normal [facility] Comment on above: Performed By: #### C ALCULI #### [facility] [address] [address] Maco Nataliia MgHPO4 (Newberyite) Normal [facility] Comment on above: Performed By: #### C ALCULI #### [facility] [address] [address] Maco Nataliia Other component(s) Normal [facility] Comment on above: Performed By: #### C ALCULI #### [facility] [address] [address] Maco Nataliia PDF . Normal [facility] Comment on above: Performed By: #### C ALCULI #### [facility] [address] [address] Maco Nataliia Photo Comment Normal [facility] Comment on above: Result Comment: Phot ograph will follow under a separate cover Performed By: #### C ALCULI #### [facility] [address] [address] Maco Nataliia Please note: Comment [facility] Comment on above: Result Comment: Calc benjamin report will follow via computer, mail or vending route servicer delivery. Performed By: #### C ALCULI #### [facility] [address] [address] Maco Nataliia Size 2x2 Normal [facility] Comment on above: Result Comment: Sing le piece received. Performed By: #### C ALCULI #### [facility] [address] [address] Maco Nataliia Sodium Acid Urate Normal [facility] Comment on above: Performed By: #### C ALCULI #### [facility] [address] [address] Maco Nataliia Source Comment Normal [facility] Comment on above: Result Comment: Righ t Kidney Performed By: #### C ALCULI #### [facility] [address] [place] [address] Maco Nataliia Triamterene Normal [facility] Comment on above: Performed By: #### C ALCULI #### [facility] [address] [place] [address] Maco Nataliia Uric Acid Normal [facility] Comment on above: Performed By: #### C ALCULI #### [facility] [address] [place] [address] Maco Nataliia Uric Acid Dihydrate Normal [facility] Comment on above: Performed By: #### C ALCULI #### [facility] [address] [place] [address] Maco Nataliia Weight 3 mg Normal [facility] Comment on above: Performed By: #### C ALCULI #### [facility] [address] [place] [address] Maco Nataliia Xanthine Normal [facility] Comment on above: Performed By: #### C ALCULI #### [facility] [address] [place] [address] Maoc Nataliia CYTOLOGYon 05-22-2021 SENT TO REF LAB 05/22/2021 [facility] Comment on above: Performed By: #### C YTO #### [facility] [address] [place] [address] Dr. Rene Wynne CBC AUTO DIFFon 05-13-2021 BASO # 0.1 103/ul Normal 0.0-0.1 [facility] Comment on above: Performed By: #### C BC #### [facility] [address] [place] [address] Maco Nataliia Basophils/100 WBC (Bld) 0.6 % Normal 0.2-2.0 [facility] Comment on above: Performed By: #### C BC #### [facility] [address] [place] [address] Maco Nataliia EO # 0.6 103/ul Normal 0.0-0.7 [facility] Comment on above: Performed By: #### C BC #### [facility] [address] [place], [place] [id number] Maco Nataliia Eosinophils/100 WBC (Bld) 3.8 % Normal 0.9-7.0 [facility] Comment on above: Performed By: #### C BC #### [facility] [address] [place], [place] [id number] Maco Nataliia Erythrocyte distribution width (RBC) [Ratio] 14.8 % Normal 11.0-15.0 [facility] Comment on above: Performed By: #### C BC #### [facility] [address] [place], [place] [id number] Maco Nataliia Hematocrit (Bld) [Volume fraction] 42.1 % Normal 42.0-54.[address] [facility] Comment on above: Performed By: #### C BC #### [facility] [address] [place] [address] Maco Nataliia Hemoglobin (Bld) [Mass/Vol] 14.3 g/dL Normal 14.0-18.[address] [facility] Comment on above: Performed By: #### C BC #### [facility] [address] [place] [address] Maco Nataliia IG # 0.08 10e3/ul Critically high 0.00-0.03 [facility] Comment on above: Performed By: #### C BC #### [facility] [address] [place] [address] Maco Nataliia IG % 0.5 % Normal 0.0-0.[address] [facility] Comment on above: Performed By: #### C BC #### [facility] [address] [place] [address] Maco Nataliia LYMPH # 3.7 103/ul Normal 1.2-3.[address] [facility] Comment on above: Performed By: #### C BC #### [facility] [address] [place], [place] [id number] Maco Nataliia Lymphocytes/100 WBC (Bld) 23.4 % Normal 20.5-60.[address] [facility] Comment on above: Performed By: #### C BC #### [facility] [address] [place] [address] Maco William MANUAL DIFF REQ NO Normal [facility] Comment on above: Performed By: #### C BC #### [facility] [address] [place] [address] Maco William MCH (RBC) [Entitic mass] 30.4 pg Normal 25.9-34.0 [facility] Comment on above: Performed By: #### C BC #### [facility] [address] [place] [address] Maco William MCHC (RBC) [Mass/Vol] 34.0 g/dL Normal 29.9-35.[address] [facility] Comment on above: Performed By: #### C BC #### [facility] [address] [place] [address] Maco William MCV (RBC) [Entitic vol] 89.4 fL Normal 80.0-94.0 [facility] Comment on above: Performed By: #### C BC #### [facility] [address] [place] [address] Maco William MONO # 1.3 103/ul Critically high 0.3-0.8 [facility] Comment on above: Performed By: #### C BC #### [facility] [address] [place] [address] Maco William Monocytes/100 WBC (Bld) 8.3 % Normal 1.7-12.[address] [facility] Comment on above: Performed By: #### C BC #### [facility] [address] [place] [address] Maco William NEUT # 9.9 103/ul Critically high 1.4-6.5 [facility] Comment on above: Performed By: #### C BC #### [facility] [address] [place] [address] Maco Nataliia Neutrophils/100 WBC (Bld) 63.4 % Normal 43.0-75.[address] [facility] Comment on above: Performed By: #### C BC #### [facility] [address] [place] [address] Maco Nataliia Platelet mean volume (Bld) [Entitic vol] 9.0 fL Critically low 9.5-13.5 [facility] Comment on above: Performed By: #### C BC #### [facility] [address] [place], [place] [id number] Maco Nataliia PLT 312 103/ul Normal 150-[address] [facility] Comment on above: Performed By: #### C BC #### [facility] [address] [place], [place] [phone] Maco Nataliia RBC 4.71 106/ul Normal 4.70-6.10 [facility] Comment on above: Performed By: #### C BC #### [facility] [address] [place], [place] [address] Maco Nataliia WBC 15.7 103/ul Critically high 4.0-11.[address] [facility] Comment on above: Performed By: #### C BC #### [facility] [address] [place], [place] [phone] Macoyonathan Nelsonen PROF CHEM 8 (BAS METB)on Anion gap [Moles/Vol] 8.1 mmol/L Normal [facility] Comment on above: Performed By: #### B MP #### [facility] [address] [place], [place] [phone] Maco Nataliia Calcium [Mass/Vol] 8.6 mg/dL Normal 8.4-10.2 [facility] Comment on above: Performed By: #### B MP #### [facility] [address] [place], [place] [address] Maco Nataliia Chloride [Moles/Vol] 104 mmol/L Normal 98-[address] [facility] Comment on above: Performed By: #### B MP #### [facility] [address] [place], [place] [address] Maco Nataliia CO2 [Moles/Vol] 30.6 mmol/L Critically high 22.0-30.0 [facility] Comment on above: Performed By: #### B MP #### [facility] [address] [place], [place] [phone] Maco Nataliia Creatinine [Mass/Vol] 0.90 mg/dL Normal 0.66-1.25 [facility] Comment on above: Performed By: #### B MP #### [facility] [address] [place], [place] [address] Maco Nataliia EGFR-AF GERMAN >60 Normal >=[address] [facility] Comment on above: Performed By: #### B MP #### [facility] [address] [place], [place] [address] Maco Nataliia EGFR-NON AF GERMAN >60 Normal >=[address] [facility] Comment on above: Performed By: #### B MP #### [facility] [address] [place], [place] [address] Maco Nataliia Glucose [Mass/Vol] 96 mg/dL Normal 74-106 [facility] Comment on above: Performed By: #### B MP #### [facility] [address] [place], [place] [address] Maco Nataliia Potassium [Moles/Vol] 3.7 mmol/L Normal 3.4-5.[address] [facility] Comment on above: Performed By: #### B MP #### [facility] [address] [id number] Maco Nataliia Sodium [Moles/Vol] 139 mmol/L Normal 137-145 [facility] Comment on above: Performed By: #### B MP #### [facility] [address] [id number] Maco Nataliia Urea nitrogen [Mass/Vol] 12.0 mg/dL Normal 9.0-20.[address] [facility] Comment on above: Performed By: #### B MP #### [facility] [address] [place], [place] [phone] Maco Nataliia Urea nitrogen/Creatinine [Mass ratio] 13.3 mg/mg Normal [facility] Comment on above: Performed By: #### B MP #### [facility] [address] [place] [address] Maco Nataliia XR KUB 1 VIEWon 05-13-2021 XR KUB 1 VIEW EXAMINATION: XR KUB 1 VIEW HISTORY: Kidney stone , left COMPARISON: XR KUB 07/05/2020, CT abdomen pelvis 04/18/2021 FINDINGS: KIDNEY/URETER - RIGHT: No visible renal or ureteral calcifications. KIDNEY/URETER - LEFT: 5 mm stone within the inferior pole of left kidney. PELVIS: No visible ureteral calcifications. Stable pelvic calcifications favor phleboliths. BOWEL: No abnormal dilation or deviation. BONES: No acute abnormality. OTHER: Negative. No abnormal gaseous collections. IMPRESSION: 1. Left nephrolithiasis, also seen on recent CT study. Electronically authenticated by: JOYCELYN BARR Date: 2021-05-13 12:[address] [facility] [address] ABD/PELV WO W CONon 04-18 CT ABD/PELV WO W CON EXAMINATION: CT ABD /PELV WO W CON, 04/18/2021 7:06 AM EDT HISTORY: Sharan hematuria COMPARISON: None. TECHNIQUE: CT scan of the abdomen and pelvis was performed without and with IV contrast. CT dose reduction technique was used, including Automated Exposure Control. FINDINGS: LUNG BASES: Bibasilar opacities, atelectasis is favored LIVER: No enlargement, atrophy, abnormal density, or significant focal lesion. BILIARY: No dilatation or calcification. PANCREAS: No lesion, fluid collection, ductal dilatation, or atrophy. SPLEEN: No enlargement or focal lesion. ADRENALS: No mass or enlargement. KIDNEYS: Nonobstructing left nephrolithiasis. No hydronephrosis. No solid cortical mass or collecting system filling defect BOWEL/MESENTERY: Mild colonic diverticulosis. Nonobstructive bowel gas pattern. Normal appendix. AORTA/VASCULAR: No aortic aneurysm. Minimal atherosclerosis RETROPERITONEUM: No mass or adenopathy. LYMPH NODES: No adenopathy. URINARY BLADDER: No visible focal wall thickening, lesion, or calculus. PELVIC ORGANS: No visible mass. Pelvic organs appropriate for patient age. ABDOMINAL WALL: 2 cm umbilical hernia containing mesenteric fat without strangulation BONES: No bony lesion or fracture. OTHER: Negative. IMPRESSION: No CT explanation for the patient's hematuria. Electronically authenticated by: EMMANUEL ROMEO Date: 2021-04-18 09:35 Normal [facility] Vital Signs Date Time Vital Sign Value Performing Clinician Facility 01-21-2024 10:29-0400 Blood Pressure Location Shawn CASE [facility] 01-21-2024 10:29-0400 Diastolic blood pressure 86 mm[Hg] Shawn CASE [facility] 01-21-2024 10:29-0400 Heart rate 88 /min Shawn CASE [facility] 01-21-2024 10:29-0400 Respiratory rate 16 /min Shanw CASE [facility] 01-21-2024 10:29-0400 Systolic blood pressure 125 mm[Hg] Shawn CASE [facility] 01-14-2024 12:23-0400 Blood Pressure Location Shawn CASE [facility] 01-14-2024 12:23-0400 Body temperature 98.42 [degF] Shawn CASE [facility] 01-14-2024 12:23-0400 Diastolic blood pressure 81 mm[Hg] Shawnmyrna CASE [facility] 01-14-2024 12:23-0400 Heart rate 65 /min Shawn CASE [facility] 01-14-2024 12:23-0400 Respiratory rate 16 /min Shawn CASE [facility] 01-14-2024 12:23-0400 Systolic blood pressure 125 mm[Hg] Shawn CASE [facility] Encounters Encounter Date Encounter Type Care Provider Facility Start: 03-20-2024 ambulatory Shawn Ornelasi ty:[facility] Start: 02-03-2024 ambulatory Shawn Ornelasi ty:[id number] Start: 01-21-2024 End: 01-22-2024 ambulatory Shawn CASE [place] [place] Start: 01-21-2024 End: 01-21-2024 Lab Drop off Shawn CASE [facility] Start: 01-21-2024 End: 01-22-2024 ambulatory Shawn CASE Facility:[facility] Start: 01-21-2024 End: 01-21-2024 Patient encounter procedure Shawn CASE [facility] Start: 01-14-2024 End: 01-15-2024 ambulatory Shawn CASE Facility:[facility] Start: 01-14-2024 End: 01-14-2024 Patient encounter procedure Shawn CASE [facility] Start: 12-10-2023 End: 12-11-2023 ambulatory Shawn CASE Facility:[facility] Start: 12-10-2023 End: 12-10-2023 Patient encounter procedure Shawn CASE [facility] Start: 08-19-2021 End: 08-20-2021 ambulatory SAE OLIVAS Facility:[facility] Start: 06-17-2021 Encounter for preprocedural cardiovascular examination DR SHAWN CASE [facility] Start: 06-17-2021 Encounter for preprocedural laboratory examination DR SHAWN CASE [facility] Start: 05-22-2021 End: 05-22-[address] SHAWN CASE Facility:[facility] Start: 05-13-2021 End: 05-14-[address] JILL SEE Facility:[facility] Start: 05-13-2021 End: 05-14-2021 Encounter for preprocedural laboratory examination DR JILL SEE Facility:[facility] Start: 04-18-2021 End: 04-19-[address] JILL SEE Facility:[facility] Start: 01-16-2021 End: 01-17-2021 ambulatory NONE LISTED REQUEST Facility: Start: 12-27-2020 End: 12-28-[address] NONE LISTED REQUEST Facility: Procedures Date Procedure Procedure Detail Performing Clinician Start: 05-22-2021 Cystoscopy Shawn SMITH Start: 04-30-2021 Cystoscopy Shawn SMITH Start: 07-04-2015 Cystourethroscopy wi th dilation of urethral stricture Sahwn CASE Start: 02-07-2015 Extracorporeal shock wave lithotripsy of calculus of kidney Shawn CASE Start: 10-09-2014 Cystoscopic removal of ureteric stent Shawn CASE Start: 08-30-2014 Cystoscopic anastomo sis of ureter to bladder with insertion of stent into ureter Shawn CASE Start: 02-24-2013 Cystourethroscopy wi th dilation of urethral stricture Shawn CASE Comment on above: 06/22/14 Start: 07-07-2011 Urethral dilatation - female Shawn CASE Comment on above: 05/06/11, 06/08/12 Start: 11-27-2010 Transurethral prostatectomy Shawn CASE Start: 05-30-2010 Urodynamic studies Suman CASE Start: 04-15-2010 Cystoscopy Shawn SMITH Comment on above: 05/06/11 Payers Date Payer Category Payer Unknown [id number] 1960 Unknown [id number] 2.16.84 [id number] 1960 Unknown [id number] 2.16.84 [id number] 1960 Unknown [id number] 2.16.84 [id number] 1962 Unknown [id number] 2.16.84 [id number] 1962 Unknown [id number] 2.16.8 [id number] 1962 Unknown [id number] 2.16.8 [id number] 1962 Unknown [id number] 2.16.8 [id number] 1962 Unknown [id number] 2.16.8 [id number] 1962 Unknown [id number] 2.16.8 [id number] 1959 Self-pay 1957 Unknown [id number] Unknown [id number] 2.16.84 [id number] Unknown [id number] 2.16.84 [id number] Unknown [id number] 2.16.84 [id number] Social History Date Type Detail Facility Start: 07-28-2021 End: 01-21-2024 Tobacco smoking status Heavy tobacco smoker (finding) [facility] Sex Assigned At Male [facility] Tobacco smoking status Never [facility] Functional Status Date Assessment Result Facility 01-21-2024 Functional Status N/A [facility] 01-14-2024 Functional Status N/A [facility] Hospital Discharge instructions 01-21-2024 Note Date & Type Note Facility 01-21-2024 Hospital Discharg e instructions Patient Education 01/21/2024 11:18:50 Steps to Quit Smoking Steps to Quit Smoking Smoking tobacco is the leading cause of preventable . It can affect almost every organ in the body. Smoking puts you and those around you at risk for developing many serious chronic diseases. Quitting smoking can be very challenging. Do not get discouraged if you are not successful the first time. Some people need to make many attempts to quit before they achieve long-term success. Do your best to stick to your quit plan, and talk with your health care provider if you have any questions or concerns. How do I get ready to quit? When you decide to quit smoking, create a plan to help you succeed. Before you quit: Pick a date to quit. Set a date within the next 2 weeks to give you time to prepare. Write down the reasons why you are quitting. Keep this list in places where you will see it often. Tell your family, friends, and co-workers that you are quitting. Support from people you are close to can make quitting easier. Talk with your health care provider about your options for quitting smoking. Find out what treatment options are covered by your health insurance. Identify people, places, things, and activities that make you want to smoke (triggers). Avoid them. What first steps can I take to quit smoking? Throw away all cigarettes at home, at work, and in your car. Throw away smoking accessories, such as ashtrays and lighters. Clean your car. Make sure to empty the ashtray. Clean your home, including curtains and carpets. What strategies can I use to quit smoking? Talk with your health care provider about combining strategies, such as taking medicines while you are also receiving in-person counseling. Using these two strategies together makes you more likely to succeed in quitting than if you used either strategy on its own. If you are or , talk with your health care provider about finding counseling or other support strategies to quit smoking. Do not take medicine to help you quit smoking unless your health care provider tells you to. Quit right away Quit smoking completely, instead of gradually reducing how much you smoke over a period of time. Stopping smoking right away may be more successful than gradually quitting. Attend in-person counseling to help you build problem-solving skills. You are more likely to succeed in quitting if you attend counseling sessions regularly. Even short sessions of 10 minutes can be effective. Take medicine You may take medicines to help you quit smoking. Some medicines require a prescription. You can also purchase [id number] medicines. Medicines may have nicotine in them to replace the nicotine in cigarettes. Medicines may: Help to stop cravings. Help to relieve withdrawal symptoms. Your health care provider may recommend: Nicotine patches, gum, or lozenges. Nicotine inhalers or sprays. Non-nicotine medicine that you take by mouth. Find resources Find resources and support systems that can help you quit smoking and remain smoke-free after you quit. These resources are most helpful when you use them often. They include: Online chats with a counselor. Telephone quitlines. Printed self-help materials. Support groups or group counseling. Text messaging programs. Mobile phone apps or applications. Use apps that can help you stick to your quit plan by providing reminders, tips, and encouragement. Examples of free services include Quit Guide from the CDC and smokefree.gov What can I do to make it easier to quit? Reach out to your family and friends for support and encouragement. Call telephone quitlines, such as 5-404-GVTQ-NOW, reach out to support groups, or work with a counselor for support. Ask people who smoke to avoid smoking around you. Avoid places that trigger you to smoke, such as bars, parties, or smoke-break areas at work. Spend time with people who do not smoke. Lessen the stress in your life. Stress can be a smoking trigger for some people. To lessen stress, try: ?Exercising regularly. ?Doing deep-breathing exercises. ?Doing yoga. ?Meditating. What benefits will I see if I quit smoking? Over time, you should start to see positive results, such as: Improved sense of smell and taste. Decreased coughing and sore throat. Slower heart rate. Lower blood pressure. Clearer and healthier skin. The ability to breathe more easily. Fewer sick days. Summary Quitting smoking can be very challenging. Do not get discouraged if you are not successful the first time. Some people need to make many attempts to quit before they achieve long-term success. When you decide to quit smoking, create a plan to help you succeed. Quit smoking right away, not slowly over a period of time. Find resources and support systems that can help you quit smoking and remain smoke-free after you quit. This information is not intended to replace advice given to you by your health care provider. Make sure you discuss any questions you have with your health care provider. Document Revised: 09/04/2022 Document Reviewed: 09/04/2022 Elsevier Patient Education 2022 SingleHop. 01/21/2024 11:18:29 Ureteroscopy Ureteroscopy Ureteroscopy is a procedure to check for and treat problems inside part of the urinary tract. In this procedure, a long rigid or flexible tube with a lens and light at the end (ureteroscope) is used to look at the inside of the kidneys and the ureters. The ureters are the tubes that carry urine from the kidneys to the bladder. The ureteroscope is inserted into one or both of the ureters. You may need this procedure if you have frequent urinary tract infections (UTIs), blood in your urine, or a stone in one or both of your ureters. A ureteroscopy can be done: To find the cause of urine blockage in a ureter and to evaluate other abnormalities inside the ureters or kidneys. To remove stones. To remove or treat growths of tissue (polyps), abnormal tissue, and some types of tumors. To remove a tissue sample and check it for disease under a microscope (biopsy). Tell a health care provider about: Any allergies you have. All medicines you are taking, including vitamins, herbs, eye drops, creams, and euqw-jof-ogvfaqg medicines. Any problems you or family members have had with anesthetic medicines. Any bleeding problems you have. Any surgeries you have had. Any medical conditions you have. Whether you are or may be . What are the risks? Your health care provider will talk with you about risks. These may include: Abdominal pain or a burning feeling or pain while urinating. Abnormal bleeding. A UTI. Allergic reactions to medicines. Scarring that narrows the ureter (stricture) or swelling. Creating a hole (perforation) in the ureter. Damage to other structures or organs, such as the part of your body that drains urine from your bladder (urethra), your bladder, or your uterus. What happens before the procedure? When to stop eating and drinking 8 hours before your procedure ?Stop eating most foods. Do not eat meat, fried foods, or fatty foods. ?Eat only light foods, such as toast or crackers. ?All liquids are okay except energy drinks and alcohol. 6 hours before your procedure ?Stop eating. ?Drink only clear liquids, such as water, clear fruit juice, black coffee, plain tea, and sports drinks. ?Do not drink energy drinks or alcohol. 2 hours before your procedure ?Stop drinking all liquids. ?You may be allowed to take medicines with small sips of water. Medicines Ask your health care provider about: Changing or stopping your regular medicines. These include any diabetes medicines or blood thinners you take. Taking medicines such as aspirin and ibuprofen. These medicines can thin your blood. Do not take these medicines unless your health care provider tells you to. Taking lwdz-wet-tvslyex medicines, vitamins, herbs, and supplements. General instructions Do not use any products that contain nicotine or tobacco for at least 4 weeks before the procedure. These products include cigarettes, chewing tobacco, and vaping devices, such as e-cigarettes. If you need help quitting, ask your health care provider. If you will be going home right after the procedure, plan to have a responsible adult: ?Take you home from the hospital or clinic. You will not be allowed to drive. ?Care for you for the time you are told. Ask your health care provider what steps will be taken to help prevent infection. These may include: ?Washing skin with a soap that kills germs. ?Receiving antibiotic medicine. Tests You may have an exam or testing. ?You may have a urine sample taken to check for infection. What happens during the procedure? An IV will be inserted into one of your veins. You may be given: ?A sedative. This helps you relax. ?Anesthesia. This will: ?Numb certain areas of your body. ?Make you fall asleep for surgery. Your urethra will be cleaned with a germ-killing solution. The ureteroscope will be passed through your urethra into your bladder. A salt-water solution will be sent through the ureteroscope to fill your bladder. This will help the health care provider see the openings of your ureters more clearly. The ureteroscope will be passed into your ureter. ?If a growth is found, a biopsy may be done. ?If a stone is found, it may be removed through the ureteroscope, or the stone may be broken up using a laser, shock waves, or electrical energy. ?In some cases, if the ureter is too small, a tube may be inserted that keeps the ureter open (ureteral stent). The stent may be left in place for 1 or 2 weeks, and then the ureteroscopy procedure will be done again. The scope will be removed, and your bladder will be emptied. The procedure may vary among health care providers and hospitals. What happens after the procedure? Your blood pressure, heart rate, breathing rate, and blood oxygen level will be monitored until you leave the hospital or clinic. It is up to you to get the results of your procedure. Ask your health care provider, or the department that is doing the procedure, when your results will be ready. Summary Ureteroscopy is a procedure used to look at the inside of the kidneys and the ureters. You may need this procedure if you have frequent urinary tract infections (UTIs), blood in your urine, or a stone in one or both of your ureters. Follow instructions from your health care provider about eating and drinking. In some cases, if the ureter is too small, a tube may be inserted that keeps the ureter open (ureteral stent). The stent may be left in place for 1 or 2 weeks to keep the ureter open, and then the ureteroscopy procedure will be done again. This information is not intended to replace advice given to you by your health care provider. Make sure you discuss any questions you have with your health care provider. Document Revised: 01/08/2023 Document Reviewed: 01/08/2023 [employer] Patient Education 2022 SingleHop. Follow Up Care 01/14/2024 13:49:56 With:BEATRIZ ROCHE, Shawn Kessler, URL Address: [address] [place] [address]- When: Unknown [facility] Clinical Note 05-13-2021 Note Date & Type Note Facility 05-13-2021 Note EXAMINATION: XR CHES T 2 V HISTORY: Pre-surgery evaluation COMPARISON: No relevant comparison available. FINDINGS: LUNGS: No significant pulmonary parenchymal abnormalities. VASCULATURE: No increased pulmonary vasculature. PLEURA: No pneumothorax, effusion, or pleural thickening. CARDIAC: No cardiomegaly or cardiac silhouette abnormality. MEDIASTINUM: No visible mass or adenopathy. BONES: No fracture or visible bone lesion. OTHER: Negative. IMPRESSION: 1. No acute cardiopulmonary process. Electronically authenticated by: JOYCELYN BARR Date: 2021-05-13 12:45 [facility] Evaluation + Plan note Note Date & Type Note Facility Evaluation + Plan note Future Appointments Appointment Date:03/20/2024 02:30:00 PM Scheduled Provider:Shawn CASE MD Location:[facility] Appointment Type:URO Office Visit [facility] Evaluation + Plan note Note Date & Type Note Facility Evaluation + Plan note Future Appointments Appointment Date:01/21/2024 10:00:00 AM Scheduled Provider:Shawn CASE MD Location:[facility] Appointment Type:URO Office Visit Appointment Date:03/20/2024 02:30:00 PM Scheduled Provider:Shawn CASE MD Location:[facility] Appointment Type:URO Office Visit [facility] Evaluation + Plan note Note Date & Type Note Facility Evaluation + Plan note Future Appointments Appointment Date:03/20/2024 02:30:00 PM Scheduled Provider:Shawn CASE MD Location:[facility] Appointment Type:URO Office Visit Diagnostic Tests PendingUrine Cyto w/ Reflex FISH ([facility]) 01/21/24 [facility] Hospital course Narrative Note Date & Type Note Facility Hospital course Narrative No data available for this section [facility] Hospital Discharge instructions Note Date & Type Note Facility Hospital Discharge instructions No data available for this section [facility] Progress note Note Date & Type Note Facility Progress note No data available for this section [facility] Summary Purpose Family History No Family History Records Found No data available for this section No data available for this section No data available for this section No data available for this section No Family History Records Found Advance Directives No Advanced Directives Records FoundNo Advanced Directives Records Found Additional Source Comments (unrecognized sect ion and content) No Status Records FoundNo Status Records Found INFORMATION SOURCE (unrecogn ized section and content) DATE CREATED AUTHOR 09/12/2021 [facility] DATE CREATED AUTHOR AUTHOR'S ORGANIZ ATION 01/30/2024 [facility] Patient Care team informatio n (unrecognized section and content) Personnel Name: JILL SEE JR, DO Address: Address: [address] [place] [phone] Personnel Name: JILL SEE JR, DO Address: Address: [address] [place] [phone] Personnel Name: JILL SEE JR, DO Address: Address: [address] [place] [phone] Personnel Name: JILL SEE JR, DO Address: Address: [address] [place] [phone] FOR RECORDS PERTAINING TO PATIENTS WHO ARE OR HAVE BEEN ENROLLED IN A CHEMICAL DEPENDENCY/SUBSTANCEABUSE PROGRAM, SOME INFORMATION MAY BE OMITTED. This clinical summary was aggregated from multiple sources. Caution should be exercised in using it in the provision of clinical care. This summary normalizes information from multiple sources, and as a consequence, information in this document may materially change the coding, format and clinical context of patient data. In addition, data may be omitted in some cases. CLINICAL DECISIONS SHOULD BE BASED ON THE PRIMARY CLINICAL RECORDS. [facility] [employer] provides no warranty or guarantee of the accuracy or completeness of information in this document.
[2024-02-03] MEDS: LACTATED RINGER'S SOLUTION 1,000 ML 50 ML IV (08:17)
[2024-02-03] MEDS: CIPROFLOXACIN IN 5 % DEXTROSE 400 MG/200 ML PIGGYBACK 200 MG IV (09:10)
[2024-02-03] MEDS: IOHEXOL 300 MG/ML - 50 ML BTL INJ (09:32)
--- NOTE | 2024-02-03 10:08 | PM.URSON ---
Urology Surgery Operative Note Operative Note Procedure Date: 02/03/24 Time Out Performed: yes Pre-op Diagnosis: Gross hematuria and right flank pain. Post-op Diagnosis: same as pre-op Procedures performed: 1. Cystoscopy. 2. Bilateral retrograde pyelogram. 3. Right rigid ureteral dilation. 4. Right ureterorenoscopy. 5. Thulium laser lithotripsy of right renal calculi. 6. Placement of 6 Cymraes variable length right ureteral stent Anesthesia: General-LMA Primary Surgeon: Shawn Case Complications: None Estimated blood loss (mL): 20 Findings: 1. Distal right ureteral stenosis. 2. Right nephrolithiasis x 4 Specimens: None Drains: 6 Cymraes variable length right ureteral stent Indications for Procedures: This gentleman has gross hematuria and right flank pain. His CT scan is negative for stones and obstruction. He now presents for cystoscopy retrogrades ureteroscopy and possible stone manipulation and stent placement. He has signed an informed consent for these procedures after all risks were explained. Detailed description of Procedure: The patient was brought to the operating room and placed on the operating room table in the supine position. SCDs were placed on the lower extremities and turned on and functioning during the entire case. Timeout was done by all parties in the room. We all agreed upon the patient's identification and the planned procedures for this patient. Genn. anesthesia was then administered. The patient was then repositioned into the modified dorsal lithotomy position. All pressure points were satisfactorily padded. Genitalia were sterilely prepped and draped in usual fashion. I started by passing a 22 Cymraes Olympus cystoscope per urethra and into the bladder. The anterior urethra was normal. The prostatic urethra was wide open. Careful panendoscopy in the bladder with the 30 and 70 degree lenses revealed no evidence of any tumors or lesions within the bladder. I then passed a 6 Cymraes open-ended ureteral catheter through the scope and cannulated the distal right ureter. I then did a retrograde pyelogram. This showed a fairly unremarkable right ureter and right kidney. The catheter was removed. I then passed a Glidewire through the scope and up the right ureter. I then used a 10 Cymraes rigid dilator to dilate the distal ureter. It felt as though there was a stricture in the distal ureter. The dilator was removed. The scope was removed. I then passed a flexible ureteroscope over the wire into the bladder and up the right ureter. The wire was removed and I carefully ascended up the ureter. The distal third of the ureter was stenosed and the rest of the ureter showed no pathology. I then entered into the kidney and I scoped in the upper mid and lower pole calyces. There was 2 stones within the upper pole calyx and 2 stones in the lower pole calyx. I passed a 200 ? laser fiber through the scope and made contact with the upper pole stones and using the thulium laser at 6 W continuously on the dusting mode I then dusted the stones. I then went into the lower pole calyx and similarly dusted those stones. No other stones were visible upon completion. There were a few Jourdan's plaques noted within a few calyces. The ureteroscope was then removed. A Glidewire was passed up into the kidney before the scope was removed. The cystoscope was then backloaded over the wire and passed into the bladder. I then slid a 6 Cymraes variable length ureteral stent over the wire up into the kidney. The wire was removed and there were good curls in the kidney and in the bladder. In preop, the patient was stating that he had left flank pain also. At this time I then passed the ureteral catheter back through the scope and cannulated the distal left ureter. A retrograde was done. The entire ureter and kidney filled out with contrast well and there was no abnormalities. The catheter was removed. The bladder was drained of its contents. The scope was then removed. He was then transferred to a [facility] bed and wheeled to PACU in stable condition.
--- NOTE | 2024-02-03 10:23 | PC.NURSE ---
Has urge to void; urinal in place
[2024-02-03] MEDS: SOLIFENACIN SUCCINATE 10 MG TABLET PO (10:27)
--- NOTE | 2024-02-03 10:44 | PC.NURSE ---
Stood up at bedside and voided clear pink urine without difficulty
--- NOTE | 2024-02-03 11:09 | PC.NURSE ---
Voided clear pink urine without difficulty
== END 2024-02-03 11:10 | disposition home or self-care (01) ==
PROVIDERS: PCP Internal Medicine; Visit Provider Urology
PROC: (CPT 910; principal; 2024-02-03 09:10)
DX: R31.0 Gross hematuria (principal); N20.0 Calculus of kidney; E78.5 Hyperlipidemia, unspecified; Z87.442 Personal history of urinary calculi; F17.210 Nicotine dependence, cigarettes, uncomplicated; J44.9 Chronic obstructive pulmonary disease, unspecified; R10.9 Unspecified abdominal pain; Q62.10 Congenital occlusion of ureter, unspecified; J30.2 Other seasonal allergic rhinitis; Z87.01 Personal history of pneumonia (recurrent); F32.A Depression, unspecified; K21.9 Gastro-esophageal reflux disease without esophagitis; N40.1 Benign prostatic hyperplasia with lower urinary tract symptoms; N52.9 Male erectile dysfunction, unspecified; R39.12 Poor urinary stream
CPT/HCPCS: 52341; 52356; 36415; 74420; J0744; J1100; J2405; J2704; J3010; Q9967

== ENCOUNTER 2024-02-17 10:28 | Day surgery (SDC) | payer BC, SELFPAY ==
[2024-02-17 11:00] VITALS: BP 124/84; PULSE 68; TEMP 36.2; O2SAT 98
[2024-02-17 14:03] VITALS: BP 142/79; PULSE 75; O2SAT 98
[2024-02-17] MEDS: LIDOCAINE 2% JELLY 10 ML UR (14:03)
[2024-02-17 14:06] VITALS: BP 137/72; PULSE 72; O2SAT 100
--- NOTE | 2024-02-17 14:07 | PM.URSON ---
Urology Surgery Operative Note Operative Note Procedure Date: 02/17/24 Time Out Performed: yes Pre-op Diagnosis: Right ureteral stenosis status post stent placement Post-op Diagnosis: same as pre-op Procedures performed: 1. Cystoscopy. 2. Right stent removal. Anesthesia: local Primary Surgeon: Shawn Case Complications: None Estimated blood loss (mL): 0 Findings: non-encrusted stent Indications for Procedures: This gentleman had gross hematuria and right ureteral stenosis for which he had a stent placed. He now presents for cystoscopy and right stent removal. He has signed an informed consent. Detailed description of Procedure: The patient was kept on the [facility] bed and brought into the Endo suite. He was in the supine position. Genitalia were sterilely prepped and draped in the usual fashion. 2% lidocaine was passed per urethra. Timeout was done by all parties in the room. We all agreed upon the patient's identification and the planned procedures for this patient. I started by passing a flexible cystoscope per urethra and into the bladder. The nonencrusted stent was identified. A flexible grasping forceps was passed and the stent was grasped. The scope and stent were then removed without difficulty. He was then discharged to home
== END 2024-02-17 14:12 | disposition home or self-care (01) ==
LOC: SURGOUT 10:30
PROVIDERS: PCP Internal Medicine; Visit Provider Urology
PROC: (CPT 52310; principal; 2024-02-17 12:00)
DX: Z46.6 Encounter for fitting and adjustment of urinary device (principal)
CPT/HCPCS: 52310

== ENCOUNTER 2024-08-09 08:33 | Outpatient (OUT) | payer BC, SELFPAY ==
--- NOTE | 2024-08-09 08:43 | XR_ITS ---
The [address] [address] Patient Name: ROSARIO BUSBY MRN: [id number] date: 1960 Sex: M Assigned Patient Location: [facility] Current Patient Location: Accession/Order Number: [id number] Exam Date: 08/09/2024 08:45 Report Date: 08/12/2024 07:29 At the request of: CHERYL HENDERSON Procedure: XR abdomen 1V EXAMINATION: XR abdomen 1V HISTORY: Kidney Stones ; left flank pain COMPARISON: XR abdomen 12/14/2023 FINDINGS: KIDNEY/URETER - RIGHT: No visible renal or ureteral calcifications. KIDNEY/URETER - LEFT: 5 mm stone projecting over superior pole of left kidney. PELVIS: No visible ureteral stones. Stable right pelvic calcifications favoring phleboliths. BOWEL: No abnormal dilation or deviation. BONES: No acute abnormality. OTHER: Negative. No abnormal gaseous collections. XR/XR abdomen 1V IMPRESSION: 1. Left nephrolithiasis. Electronically authenticated by: JOYCELYN BARR Date: 08/12/2024 07:29
--- OUTSIDE RECORDS SUMMARY | 2024-08-09 08:52 | XMS_ITS | CCD ---
Author Organization [facility] ion [facility] Care Team Providers Care Agency Sales Representative Name Role Phone ESA, DR MELCHOR Primary Care Unavailable CASE, DR LUNA Attending Unavailable CASE, DR LUNA Consulting Unavailable CASE, DR LUNA Admitting Unavailable ZIEBER, DR JOYCELYN Kessler Consulting Unavailable CASE, DR ULNA Attending Unavailable VALONE, DR MELCHOR Primary Care [...] VALONE, DR MELCHOR Primary Care Unavailable VALONE JR, JILL Primary Care Physician Shawn CASE Attending [...] Amoxicillin; Translations: [amoxicillin] Drug Allergy 6 [facility] Repository (2 sources) Cephalexin; Translations: [cephalexin] Drug Allergy [facility] Repository (3 sources) Codeine; Translations: [codeine] Drug Allergy 6 [facility] Rep[facility] (2 sources) Sulfonamides (Antibiotic) Drug allergy (disorder) 4 [facility] Repository (5 sources) Amoxicillin; Translations: [amoxicillin] Drug Allergy 6 Unknown [facility] (5 sources) Cephalexin; Translations: [cephalexin] Drug Allergy Unknown [facility] (5 sources) Codeine; Translations: [codeine] Drug Allergy 6 Unknown [facility] (6 sources) Pollen; Translations: [Pollen] Allergy to substance Unknown (qualifier value) [facility] (6 sources) Sulfamethoxazole ; Translations: [sulfamethoxazol e] Drug Allergy Unknown (qualifier value) [facility] (6 sources) Sulfonamides; Translations: [sulfonamides] Drug allergy Unknown (qualifier value) [facility] (6 sources) Grass; Translations: [Grass] Allergy to substance Unknown (qualifier value) [facility] Medications Current Medications Medication Drug Class(es) Dates [...] (Rx) Start Date: 05/23/21 Status: Ordered Trileptal (5 sources) Anti-epileptic Agent Start: 06-30-2019 Trileptal Oral, BID, Refills(s) 0 Start Date: 06/30/19 Status: Ordered Crestor (5 sources) HMG-CoA Reductase Inhibitor Start: 06-20-2019 Crestor Oral, Daily, Refills(s) 0 Start Date: 06/20/19 Status: Ordered sildenafil 100 mg oral tablet (5 sources) Phosphodiesterase 5 Inhibitor Start: 07-28-2021 sildenafil 100 mg Tab 100 mg = 1 tab(s), Oral, As Directed, 1 hour before sexual activity, # 30 tab(s), Refills(s) 2, Pharmacy: [facility], 170.2, cm, 07/28/21 10:01:00 EDT, Height/Length Dosing, 89, kg, 07/28/21 10:01:00 EDT, Weight Dosing Start Date: 07/28/21 Status: Ordered Completed/Discontinued Medications Medication Drug Class(es) Dates Sig (Normalized) Sig (Original) ciprofloxacin 500 mg oral tablet (1 source) Quinolone Antimicrobial Start: 02-08-2024 take 1 tablet by mouth once daily Cipro 500 mg Tab 500 mg = 1 tab(s), Oral, Daily, Take 1 tablet the day before the procedure and 1 tablet after the procedure, # 2 tab(s), Refills(s) 0, Pharmacy: [id number], 170.2, cm, 01/21/24 10:41:00 EDT, Height/Length Dosing, 89.4, kg, 01/21/24 10:41:00 EDT, Weight Dosing Start Date: 02/08/24 Status: Ordered Problems Active Problems Problem Classification Problem Date Documented Da te Episodic/Chronic Abdominal pain (6 sources) Unspecified abdominal pain; Translations: [Flank pain] Onset: 05-26-2021 06-20-2019 Episodic Calculus of urinary tract (18 sources) Calculus of kidney; Translations: [Personal history of urinary calculi] Onset: 04-29-2021 07-05-2020 Episodic Disorders of lipid metabolism (6 sources) Hyperlipidemia, unspecified; Translations: [Hyperlipidemia] Onset: 06-17-2021 04-30-2021 Chronic Esophageal disorders (1 source) Gastro-esophageal reflux disease without esophagitis; Translations: [GERD WITHOUT ESOPHAGITIS] Onset: 05-26-2021 Chronic Genitourinary symptoms and ill-defined conditions (18 sources) Gross hematuria; Translations: [Blood in urine] Onset: 04-29-2021 Episodic Hyperplasia of prostate (8 sources) Benign prostatic hyperplasia without lower urinary tract symptoms; Translations: [Benign prostatic hyperplasia with lower urinary tract symptoms] Onset: 05-26-2021 06-30-2019 Chronic Immunizations and screening for infectious disease (4 sources) Encounter for immunization; Translations: [ENCOUNTER FOR IMMUNIZATION] Onset: 08-19-2021 Episodic Inflammatory conditions of male genital organs (5 sources) Prostatitis 06-20-2019 Episodic Mood disorders (6 sources) Major depressive disorder, single episode, unspecified; Translations: [Depressive disorder] Onset: 06-17-2021 04-30-2021 Chronic Other diseases of bladder and urethra (1 source) Unspecified urethral stricture, male, unspecified site; Translations: [UNSP URETHRAL STRCT MALE UNSP SITE] Onset: 06-17-2021 Episodic Other diseases of bladder and urethra (5 sources) Urethral stricture 07-05-2020 Episodic Other male genital disorders (2 sources) Male erectile dysfunction, unspecified; Translations: [Erectile dysfunction] Onset: 06-17-2021 Chronic Other male genital disorders (5 sources) Impotence 07-05-2020 Chronic Residual codes; unclassified (5 sources) Chronic back pain 06-20-2019 Episodic Substance-related disorders (7 sources) Nicotine dependence, cigarettes, uncomplicated; Translations: [Smoker] Onset: 06-17-2021 07-05-2020 Chronic Past or Other Problems Problem Classification Problem Date Documented Da te Episodic/Chronic Other aftercare (1 source) Other technician terminal and repeater (current) drug therapy; Translations: [OTH MCC CURRENT DRUG THERAPY] Onset: 05-26-2021 Episodic Other diseases of kidney and ureters (1 source) Crossing vessel and stricture of ureter without hydronephrosis; Translations: [CROSSING VES STRICT URETER W/O HN] Onset: 05-26-2021 Episodic Residual codes; unclassified (1 source) Insomnia, unspecified; Translations: [INSOMNIA UNSPECIFIED] Onset: 05-26-2021 Episodic Results Test Name Value Interpretation Reference Range Facility Reminderson 06-12-2024 Reminders Reminders From: Christina Zarco To: [facility] - Administrative; Sent: 03/24/2024 10:27:01 EDT Show up: 06/03/2024 10:26:00 EDT Subject: 6 mo f/u Due Date/Time: 09/02/2024 10:26:00 EST Reminder/Recall Per message in Pool. Patient needs scheduled for a 6 mo f/u w/ KUB, ok with DAVID. due by 09/02/2024 PATIENT IS ALREADY SCHEDULED [facility] Operative Reporton Operative Report [id number]#1.00TIFF [facility] Consent for Procedure/Surger yon 02-17-2024 Consent for Procedure/Surgery [id number]#1.00TIFF [facility] Provider Letteron 02-17-2024 Provider Letter (Inserted Image. Ursula ble to display) February 17, 2024 [facility] [address] [place] [address] : 1960 To Whom It May Concern, Please excuse above patient from work. Date of Illness: From: 02/03/2024 To: 02/22/2024 May Return to Work On: 02/23/24 Restrictions: None Comments: Patient may return to work 02/22/2024 without restriction. Sincerely, [facility] [address] [place] [address] , option #3 [facility] Provider Letteron 02-07-2024 Provider Letter (Inserted Image. Ursula ble to display) February 07, 2024 [facility] [address] [place] [address] : 1960 To Whom It May Concern, Please excuse above patient from work. Date of Illness: From: 02/03/2024 To: 02/16/2024 May Return to Work On: 02/17/2024 Restrictions: None Comments: No work 02/03/2024- . 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 [facility] , option #3 Normal [facility] Urine Cyto w/ Reflex FISH (P 4 Labs)on 02-05-2024 UC w/Reflex FISH Diagnosis Info Invalid Interpretation Code [facility] Comment on above: Result Comment: A:Ur ine,Urine:Voided Diagnosis Summary - Microscopic Notes - Abnormal cells 9p21 deletions: Abnormal cells aneploid events: Total cells analyzed: Hematuria: Gross Description Site ID:A color Dark Yellow fixative Alcohol Received 110 mls of clear dark yellow fluid with the patient's name and, Urine on the vial Electronically signed by : on: 02/05/2024 16:27:40 Performed By: #### 1 [id number] ####[facility] [address] [place] [address] Operative Reporton Operative Report [id number]#1.00TIF F [facility] ECG 12-Leadon 01-28-2024 ECG 12-Lead [id number]#1.00TIF F [facility] Pre-Certification Formon Pre-Certification Form [id number]#1.00TIF F [facility] Lab Reportson 01-26-2024 Lab Reports [id number]#1.00TIF F [facility] Lab Reports [id number]#1.00TIF F [facility] RAD - MISCon 01-26-2024 RAD - MISC [id number]#1.00TIFF [facility] Ambulatory Visit Summaryon 0 01-21-2024 Ambulatory Visit Summary ROSARIO BUSBY :1960 Visit Date:01/21/2024 Ambulatory Visit Instructions Your Diagnosis Kidney stones Gross hematuria BPH with urinary obstruction Impotence Smoker Your Care Team Attending Physician - Shawn CASE MD Primary Care Physician - JILL SEE JR, [...] ROCHE, Shawn Kessler Where: [facility] Consent for Procedure/Surger yon 01-21-2024 Consent for Procedure/Surgery [id number]#1.00TIF F [facility] Patient Educationon 01-21-20 24 Patient Education Pulmonary Medicine Steps to Quit [...] require a prescription. You can also purchase zgqj-fio-rcvylpb medicines. Medicines may have nicotine in them [...] and encouragement. Call telephone quitlines, such as 9-270-MUMA-NOW, reach out to support groups, or work [...] quit smoki (more content not included)... Normal [facility] Urine Cyto w/ Reflex FISH (P 4 Labs)on 01-21-2024 [facility] Method of Extraction Voided Normal [facility] Comment on above: Performed By: #### 1 [id number] ####[facility] [address] [place] [address] [facility] Number of Jars 1 Invalid Interpretation Code [facility] Comment on above: Performed By: #### 1 [id number] ####[facility] [address] [place] [address] [facility] Specimen Voided Normal [facility] Comment on above: Performed By: #### 1 [id number] ####[facility] [address] [place] [address] [facility] Type of Service Technical Only Normal [facility] Comment on above: Performed By: #### 1 [id number] ####[facility] [address] [place] [address] Urology Office/Clinic Noteon 01-21-2024 Urology Office/Clinic Note [...] office again on 01/05/24 c/o gross hematuria. [facility] 01/05/24 CC: hematuria NEG C&S CT [...] collecting system dilatation bilaterally. Pt presented to [facility] 01/05/24 with gross hematuria. Pt refused [...] Contact Information BEATRIZ ROCHE, Shawn Kessler, URL [facility] [place] [id number]- Additional Instructions: Scheduling surgery Patient Education Steps to Quit Smoking Ureteroscopy IMarium, personally scribed for Dr. Case on 01/21/2024 11:22:01. . Documentation recorded by the scribeMarium, accurately reflects the services(s) I performed and decisions made by me. Authenticated by Dr. Case on 01/21/2024 11: (more content not included)... Normal [facility] Comment on above: Result Comment: Elec tronically Signed By: Shawn CASE MD\.br\Date and Time Signed: 01/21/24 11:25 EDT\.br\Electronically Co-Signed By: Marium Maurer\.br\Date and Time Co-Signed: 01/21/24 11:22 EDT RAD - MISCon 12-14-2023 RAD - MISC [id number]#1.00TIF F Normal [facility] RAD - Ultrasound Reporton RAD - Ultrasound Report [id number]#1.00TIF F Normal [facility] CALCULI, URINARYon 1 2,8 Dihydroxyadenine Normal [facility] Comment on above: Performed By: #### C ALCULI #### [facility] [address] [address] Maco Nataliia Ammonium Acid Urate Normal [facility] Comment on above: Performed By: #### C ALCULI #### [facility] [address] [address] Maco Nataliia Bilirubin Ql (U) Normal [facility] Comment on above: Performed By: #### C ALCULI #### [facility] [address] [place] [address] Maco Nataliia Ca Oxalate Dihydrate 80 % Normal [facility] Comment on above: Performed By: #### C ALCULI #### [facility] [address] [address] Maco Nataliia CaHPO4 (Brushite) Normal [facility] Comment on above: Performed By: #### C ALCULI #### [facility] [address] [place] [address] Maco Nataliia Calcium Bilirubinate Normal [facility] Comment on above: Performed By: #### C ALCULI #### [facility] [address] [place] [address] Maco Nataliia Calcium Carbonate Normal [facility] Comment on above: Performed By: #### C ALCULI #### [facility] [address] [place] [address] Maco Nataliia Calcium Oxalate Monohydrate 20 % Normal [facility] Comment on above: Performed By: #### C ALCULI #### [facility] [address] [place] [address] Maco Nataliia Calcium Palmitate Normal [facility] Comment on above: Performed By: #### C ALCULI #### [facility] [address] [place] [address] Maco Nataliia Calcium Phosphate Normal [facility] Comment on above: Performed By: #### C ALCULI #### [facility] [address] [address] Maco Nataliia Calcium Stearate Normal [facility] Comment on above: Performed By: #### C ALCULI #### [facility] [address] [address] Maco Nataliia Carbonate Apatite Normal [facility] Comment on above: Performed By: #### C ALCULI #### [facility] [address] [address] Maco Nataliia Cellular Material Normal [facility] Comment on above: Performed By: #### C ALCULI #### [facility] [address] [address] Maco Nataliia Cholesterol Normal [facility] Comment on above: Performed By: #### C ALCULI #### [facility] [address] [address] Maco Nataliia Color (U) See Normal [facility] Comment on above: Performed By: #### C ALCULI #### [facility] [address] [address] Maco Nataliia Comment Normal [facility] Comment on above: Performed By: #### C ALCULI #### [facility] [address] [address] Maco Nataliia Comment: Comment Normal [facility] Comment on above: Result Comment: Marsha elena questions regarding Calculi Analysis contact [facility] at: [phone]. Performed By: #### C ALCULI #### [facility] [address] [address] Maco Nataliia Composition Comment Normal [facility] Comment on above: Result Comment: Perc entage (Represents the % composition) Performed By: #### C ALCULI #### [facility] [address] [address] Maco Nataliia Cystine Normal [facility] Comment on above: Performed By: #### C ALCULI #### [facility] [address] [address] Maco Nataliia Disclaimer: Comment Normal [facility] Comment on above: Result Comment: This test was developed and its performance characteristics determined by [facility]. It has not been cleared or approved by the Food and Drug Administration. Performed By: #### C ALCULI #### [facility] [address] [address] Maco Nataliia Dried Blood Normal [facility] Comment on above: Performed By: #### C ALCULI #### [facility] [address] [address] Maco Nataliia Drug or Metabolite Normal [facility] Comment on above: Performed By: #### C ALCULI #### [facility] [address] [place] [address] Maco Nataliia Hydroxyapatite Normal [facility] Comment on above: Performed By: #### C ALCULI #### [facility] [address] [place] [address] Maco Nataliia Mg NH4 PO4 (Struvite) [facility] Comment on above: Performed By: #### C ALCULI #### [facility] [address] [place] [address] Maco Nataliia MgHPO4 (Newberyite) [facility] Comment on above: Performed By: #### C ALCULI #### [facility] [address] [place] [address] Maco Nataliia Other component(s) Normal [facility] Comment on above: Performed By: #### C ALCULI #### [facility] [address] [place] [address] Maco Nataliia PDF . Normal [facility] Comment on above: Performed By: #### C ALCULI #### [facility] [address] [place] [address] Maco Nataliia Photo Comment Normal [facility] Comment on above: Result Comment: Phot ograph will follow under a separate cover Performed By: #### C ALCULI #### [facility] [address] [place] [address] Maco Nataliia Please note: Comment Normal [facility] Comment on above: Result Comment: Calc benjamin report will follow via computer, mail or chief of party delivery. Performed By: #### C ALCULI #### [facility] [address] [address] Maco Nataliia Size 2x[address] [facility] Comment on above: Result Comment: Sing le piece received. Performed By: #### C ALCULI #### [facility] [address] [address] Maco Nataliia Sodium Acid Urate Normal [facility] Comment on above: Performed By: #### C ALCULI #### [facility] [address] [address] Maco Nataliia Source Comment Normal [facility] Comment on above: Result Comment: Righ t Kidney Performed By: #### C ALCULI #### [facility] [address] [place] [address] Maco Nataliia Triamterene Normal [facility] Comment on above: Performed By: #### C ALCULI #### [facility] [address] [address] Maco Nataliia Uric Acid Normal [facility] Comment on above: Performed By: #### C ALCULI #### [facility] [address] [place] [address] Maco Nataliia Uric Acid Dihydrate Normal [facility] Comment on above: Performed By: #### C ALCULI #### [facility] [address] [address] Maco Nataliia Weight 3 mg Normal [facility] Comment on above: Performed By: #### C ALCULI #### [facility] [address] [address] Maco Nataliia Xanthine Normal [facility] Comment on above: Performed By: #### C ALCULI #### [facility] [address] [place] [address] Maco Nataliia CYTOLOGYon 05-22-2021 SENT TO REF LAB 05/22/2021 [facility] Comment on above: Performed By: #### C YTO #### [facility] [address] [place] [address] Dr. Rene Wynne CBC AUTO DIFFon 05-13-2021 BASO # 0.1 103/ul Normal 0.0-0.[address] [facility] Comment on above: Performed By: #### C BC #### [facility] [address] [place], [place] [id number] Maco Nataliia Basophils/100 WBC (Bld) 0.6 % Normal 0.2-2.[address] [facility] Comment on above: Performed By: #### C BC #### [facility] [address] [place] [address] Maco Nataliia EO # 0.6 103/ul Normal 0.0-0.[address] [facility] Comment on above: Performed By: #### C BC #### [facility] [address] [place] [address] Maco Nataliia Eosinophils/100 WBC (Bld) 3.8 % Normal 0.9-7.[address] [facility] Comment on above: Performed By: #### C BC #### [facility] [address] [place] [address] Maco Nataliia Erythrocyte distribution width (RBC) [Ratio] 14.8 % Normal 11.0-15.[address] [facility] Comment on above: Performed By: #### C BC #### [facility] [address] [place], [place] [address] Maco Nataliia Hematocrit (Bld) [Volume fraction] 42.1 % Normal 42.0-54.[address] [facility] Comment on above: Performed By: #### C BC #### [facility] [address] [place] [address] Maco Nataliia Hemoglobin (Bld) [Mass/Vol] 14.3 g/dL Normal 14.0-18.0 [facility] Comment on above: Performed By: #### C BC #### [facility] [address] [place], [place] [address] Maco Nataliia IG # 0.08 10e3/ul Critically high 0.00-0.[address] [facility] Comment on above: Performed By: #### C BC #### [facility] [address] [place], [place] [address] Maco Nataliia IG % 0.5 % Normal 0.0-0.[address] [facility] Comment on above: Performed By: #### C BC #### [facility] [address] [place] [address] Maco William LYMPH # 3.7 103/ul Normal 1.2-3.[address] [facility] Comment on above: Performed By: #### C BC #### [facility] [address] [place] [address] Maco William Lymphocytes/100 WBC (Bld) 23.4 % Normal 20.5-60.[address] [facility] Comment on above: Performed By: #### C BC #### [facility] [address] [place] [address] Maco William MANUAL DIFF REQ NO Normal [facility] Comment on above: Performed By: #### C BC #### [facility] [address] [place] [address] Maco William MCH (RBC) [Entitic mass] 30.4 pg Normal 25.9-34.[address] [facility] Comment on above: Performed By: #### C BC #### [facility] [address] [place] [address] Maco William MCHC (RBC) [Mass/Vol] 34.0 g/dL Normal 29.9-35.[address] [facility] Comment on above: Performed By: #### C BC #### [facility] [address] [place] [address] Maco William MCV (RBC) [Entitic vol] 89.4 fL Normal 80.0-94.[address] [facility] Comment on above: Performed By: #### C BC #### [facility] [address] [place] [address] Maco Nataliia MONO # 1.3 103/ul Critically high 0.3-0.[address] [facility] Comment on above: Performed By: #### C BC #### [facility] [address] [place] [address] Maco William Monocytes/100 WBC (Bld) 8.3 % Normal 1.7-12.0 [facility] Comment on above: Performed By: #### C BC #### [facility] [address] [place], [place] [address] Maco William NEUT # 9.9 103/ul Critically high 1.4-6.[address] [facility] Comment on above: Performed By: #### C BC #### [facility] [address] [place], [place] [id number] Maco William Neutrophils/100 WBC (Bld) 63.4 % Normal 43.0-75.[address] [facility] Comment on above: Performed By: #### C BC #### [facility] [address] [place], [place] [id number] Maco William Platelet mean volume (Bld) [Entitic vol] 9.0 fL Critically low 9.5-13.5 [facility] Comment on above: Performed By: #### C BC #### [facility] [address] [place], [place] [id number] Maco Nelsonen PLT 312 103/ul Normal 150-[address] [facility] Comment on above: Performed By: #### C BC #### [facility] [address] [place], [place] [id number] Maco Nataliia RBC 4.71 106/ul Normal 4.70-6.10 [facility] Comment on above: Performed By: #### C BC #### [facility] [address] [place], [place] [id number] Macoyonathan Nelsonen WBC 15.7 103/ul Critically high 4.0-11.0 [facility] Comment on above: Performed By: #### C BC #### [facility] [address] [place] [id number] Maco William PROF CHEM 8 (BAS METB)on Anion gap [Moles/Vol] 8.1 mmol/L Normal [facility] Comment on above: Performed By: #### B MP #### [facility] [address] [place], [place] [id number] Maco William Calcium [Mass/Vol] 8.6 mg/dL Normal 8.4-10.2 [facility] Comment on above: Performed By: #### B MP #### [facility] [address] [address] Maco Nataliia Chloride [Moles/Vol] 104 mmol/L Normal 98-107 [facility] Comment on above: Performed By: #### B MP #### [facility] [address] [address] Maco Nataliia CO2 [Moles/Vol] 30.6 mmol/L Critically high 22.0-30.0 [facility] Comment on above: Performed By: #### B MP #### [facility] [address] [place] [address] Maco Nataliia Creatinine [Mass/Vol] 0.90 mg/dL Normal 0.66-1.25 [facility] Comment on above: Performed By: #### B MP #### [facility] [address] [place] [address] Maco Nataliia EGFR-AF GEORGIAN >60 Normal >=60 [facility] Comment on above: Performed By: #### B MP #### [facility] [address] [place] [address] Maco Nataliia EGFR-NON AF GEORGIAN >60 Normal >=60 [facility] Comment on above: Performed By: #### B MP #### [facility] [address] [place] [address] Maco Nataliia Glucose [Mass/Vol] 96 mg/dL Normal 74-106 [facility] Comment on above: Performed By: #### B MP #### [facility] [address] [place] [address] Maco Nataliia Potassium [Moles/Vol] 3.7 mmol/L Normal 3.4-5.0 [facility] Comment on above: Performed By: #### B MP #### [facility] [address] [place] [address] Maco Nataliia Sodium [Moles/Vol] 139 mmol/L Normal 137-145 [facility] Comment on above: Performed By: #### B MP #### [facility] [address] [place] [address] Maco Nataliia Urea nitrogen [Mass/Vol] 12.0 mg/dL Normal 9.0-20.[address] [facility] Comment on above: Performed By: #### B MP #### [facility] [address] [place], [place] [address] Maco William Urea nitrogen/Creatinine [Mass ratio] 13.3 mg/mg Normal [facility] Comment on above: Performed By: #### B MP #### [facility] [address] [place], [place] [address] Maco William XR KUB 1 VIEWon 05-13-2021 XR KUB [...] by: JOYCELYN BARR Date: 2021-05-13 12:[address] [facility] CT ABD/PELV WO W CONon 04-18 [...] by: EMMANUEL ROMEO Date: 2021-04-18 09:[address] [facility] Vital Signs Date Time Vital Sign Value Performing Clinician Facility 01-21-2024 10:29-0400 Blood Pressure Location Shawnmyrna CASE [facility] 01-21-2024 10:29-0400 Diastolic blood pressure 86 mm[Hg] Shawn CASE [facility] 01-21-2024 10:29-0400 Heart rate 88 /min Shawn CASE [facility] 01-21-2024 10:29-0400 Respiratory rate 16 /min Shawn CASE [facility] 01-21-2024 10:29-0400 Systolic blood pressure 125 mm[Hg] Shawn CASE [facility] 01-14-2024 12:23-0400 Blood Pressure Location Shawn CASE [facility] 01-14-2024 12:23-0400 Body temperature 98.42 [degF] Shawn CASE [facility] 01-14-2024 12:23-0400 Diastolic blood pressure 81 mm[Hg] Shawn CASE [facility] 01-14-2024 12:23-0400 Heart rate 65 /min Shawn CASE [facility] 01-14-2024 12:23-0400 Respiratory rate 16 /min Shawn CASE [facility] 01-14-2024 12:23-0400 Systolic blood pressure 125 mm[Hg] Shawn CASE [facility] Encounters Encounter Date Encounter Type Care Provider Facility Start: 08-11-2024 ambulatory Shawn CASE Facili ty:[facility] Start: 03-20-2024 ambulatory Shawn CASE Facili ty:[facility] Start: 02-16-2024 End: 02-17-2024 ambulatory Shawn CASE Facility:CD:[id number] Start: 02-16-2024 End: 02-16-2024 Patient encounter procedure Shawn CASE [facility] Start: 02-03-2024 End: 02-03-2024 ambulatory Shawn CASE Facility:CD:[id number] Start: 01-21-2024 End: 01-21-2024 ambulatory Shawn CASE Facility:[facility] Start: 01-21-2024 End: 01-21-2024 Lab Drop off Shawn CASE [facility] Start: 01-21-2024 End: 01-21-2024 ambulatory Shawn CASE Facility:[facility] Start: 01-21-2024 End: 01-21-2024 Patient encounter procedure Shawn CASE [facility] Start: 01-14-2024 End: 01-14-2024 ambulatory Shawn CASE Facility:[facility] Start: 01-14-2024 End: 01-14-2024 Patient encounter procedure Shawn CASE [facility] Start: 12-10-2023 End: 12-10-2023 ambulatory Shawn CASE Facility:[facility] Start: 12-10-2023 End: 12-10-2023 Patient encounter procedure Shawn CASE [facility] Start: 08-19-2021 End: 08-20-2021 ambulatory SAE OLIVAS Facility: Start: 06-17-2021 Encounter for preprocedural cardiovascular examination DR SHAWN CASE [facility] Start: 06-17-2021 Encounter for preprocedural laboratory examination DR SHAWN CASE [facility] Start: 05-22-2021 End: 05-22-[address] SHAWN CASE Facility: Start: 05-13-2021 End: 05-14-[address] JILL SEE Facility: Start: 05-13-2021 End: 05-14-2021 Encounter for preprocedural laboratory examination DR JILL SEE Facility: Start: 04-18-2021 End: 04-19-[address] JILL SEE Facility:[facility] Start: 01-16-2021 End: 01-17-2021 ambulatory NONE LISTED REQUEST Facility:[facility] Start: 12-27-2020 End: 12-28-2020 ambulatory NONE LISTED REQUEST Facility: Procedures Date Procedure Procedure Detail Performing Clinician Start: 02-03-2024 Cystoscopic insertio n of ureteric stent Shawn CASE Start: 05-22-2021 Cystoscopy Shawn SMITH Start: 04-30-2021 Cystoscopy Shawn SMITH Start: 07-04-2015 Cystourethroscopy wi th dilation of urethral stricture Shawn CASE Start: 02-07-2015 Extracorporeal shock wave lithotripsy [...] prostatectomy Shawn CASE Start: 05-30-2010 Urodynamic studies Xiomaraaugusta shawflorentino CASE Start: 04-15-2010 Cystoscopy Shawn ABEBE KELLERSuad Comment on above: 05/06/11 Immunizations Immunization Date Immunization Notes Care Provider Champ chan 07-29-2023 influenza virus vaccine, unspecified formulation Shawn CASE [facility] 08-19-2021 SARS-CoV-2 (COVID-19 ) mRNA BNT-162b2 vax Shawn CASE [facility] 01-16-2021 SARS-CoV-2 (COVID-19 ) mRNA BNT-162b2 vax Shawn CASE [facility] 12-27-2020 SARS-CoV-2 (COVID-19 ) mRNA BNT-162b2 vax Shawn CASE [facility] 07-10-2020 influenza virus vaccine, unspecified formulation Shawnmyrna CASE [facility] 05-30-2018 influenza virus vaccine, unspecified formulation Shawnmyrna CASE [facility] 07-08-2016 influenza virus vaccine, unspecified formulation Shawn CASE [facility] Payers Date Payer Category Payer Unknown [id number] 2020 Unknown [id number] 1960 Unknown [id number] 2.16.84 [id number] 1960 Unknown [id number] 2.16.84 0.1.252697.3.579.2.593 1960 Unknown [id number] 2.16.84 0.1.361387.3.579.2.593 1960 Unknown [id number] 2.16.84 0.1.044075.3.579.2.593 1960 Unknown [id number] 2.16.8 40.1.111527.3.579.2.727 1960 Unknown [id number] 2.16.8 40.1.771274.3.579.2.727 1960 Unknown [id number] 2.16.8 40.1.189178.3.579.2.727 1960 Unknown [id number] 2.16.8 40.1.229353.3.579.2.727 1960 Unknown [id number] 2.16.8 40.1.787982.3.579.2.727 1960 Unknown [id number] 2.16.8 40.1.993781.3.579.2.727 1960 Unknown [id number] 2.16.8 40.1.445481.3.579.2.727 1960 Unknown [id number] 2.16.8 40.1.712003.3.579.2.727 1960 Unknown [id number] 2.16.8 40.1.230754.3.579.2.727 1957 Self-pay 1957 Unknown [id number] Unknown [id number] 2.16.84 0.1.507582.3.579.2.593 Unknown [id number] 2.16.84 0.1.456087.3.579.2.593 Unknown [id number] 2.16.84 0.1.873436.3.579.2.593 Social History Date Type Detail Facility Start: 07-28-2021 End: 01-21-2024 Tobacco smoking status Heavy tobacco smoker (finding) [facility] Sex Assigned At Male [facility] Tobacco smoking status Never [facility] Functional Status Date Assessment Result Facility 01-21-2024 Functional Status N/A [facility] 01-14-2024 Functional Status N/A [facility] Hospital Discharge instructions 01-21-2024 Note Date & [...] require a prescription. You can also purchase osfl-ckc-fsfsrxu medicines. Medicines may have nicotine in them [...] and encouragement. Call telephone quitlines, such as 9-927-QUFZ-NOW, reach out to support groups, or work [...] provider. Document Revised: 09/04/2022 Document Reviewed: 09/04/2022 [employer] Patient Education 2022 [employer]. 01/21/2024 11:18:29 Ureteroscopy Ureteroscopy Ureteroscopy is a [...] including vitamins, herbs, eye drops, creams, and bkur-sll-xrpplbx medicines. Any problems you or family members [...] health care provider tells you to. Taking ilqx-ccz-xhhnyvy medicines, vitamins, herbs, and supplements. General instructions [...] provider. Document Revised: 01/08/2023 Document Reviewed: 01/08/2023 [employer] Patient Education 2022 [employer]. Follow Up Care 01/14/2024 13:49:56 With:Shawn CASE MD, URL Address: [address] [place] [address]- When: Unknown [facility] Clinical Note 05-13-2021 Note Date & Type [...] authenticated by: JOYCELYN BARR Date: 2021-05-13 12:[address] [facility] Evaluation + Plan note Note Date & Type Note Facility Evaluation + Plan note Future Appointments Appointment Date:03/20/2024 02:30:00 PM Scheduled Provider:Shawn CASE MD Location:[facility] Appointment Type:URO Office Visit [facility] Evaluation + Plan note Note Date & Type Note Facility Evaluation + Plan note Future Appointments Appointment Date:01/21/2024 10:00:00 AM Scheduled Provider:Shawn CASE MD Location:[facility] Appointment Type:URO Office Visit Appointment Date:03/20/2024 02:30:00 PM Scheduled Provider:Shawn CASE MD Location:[facility] Appointment Type:URO Office Visit [facility] Evaluation + Plan note Note Date & Type Note Facility Evaluation + Plan note Future Appointments Appointment Date:03/20/2024 02:30:00 PM Scheduled Provider:Shawn CASE MD Location:[facility] Appointment Type:URO Office Visit Diagnostic Tests PendingUrine Cyto w/ Reflex FISH ([facility]) 01/21/24 [facility] Hospital course Narrative Note Date & Type Note Facility Hospital course Narrative No data available for this section [facility] Hospital Discharge instructions Note Date & Type Note Facility Hospital Discharge instructions No data available for this section [facility] Progress note Note Date & Type Note Facility Progress note No data available for this section [facility] Summary Purpose Family History No Family History [...] and content) DATE CREATED AUTHOR 09/12/2021 [facility] DATE CREATED AUTHOR AUTHOR'S ORGANIZ ATION 08/07/2024 [facility] Patient Care team informatio n (unrecognized section and content) Personnel Name: JILL SEE JR, DO Address: Address: [address] [place] [address] Personnel Name: JILL SEE JR, DO Address: Address: [address] [place], [place] [id number] Personnel Name: JILL ESE JR, DO Address: Address: [address] [place], [place] [id number] Personnel Name: JILL SEE JR, DO Address: Address: [address] [place], [place] [id number] Personnel Name: JILL SEE JR, DO Address: Address: [address] [place], [place] [id number] FOR RECORDS PERTAINING TO PATIENTS WHO ARE [...] BE BASED ON THE PRIMARY CLINICAL RECORDS. [facility] [employer] [facility]. provides no warranty or guarantee of the accuracy or completeness of information in this document.
== END 2024-08-09 08:34 | disposition home or self-care (01) ==
LOC: RAD 08:37
PROVIDERS: PCP Internal Medicine; Visit Provider Urology
DX: N20.0 Calculus of kidney (principal)
CPT/HCPCS: 74018

== ENCOUNTER 2024-12-27 13:26 | Outpatient (OUT) | payer BC, SELFPAY ==
--- NOTE | 2024-12-27 14:11 | P.CN_ITS ---
Consult Note: HPI Data of Consult Patient: new to practice Requesting Physician: Ankita Amor NP Primary Care Provider: JILL SEE DO Consult Narrative Reason for consult: low back and right hip pain Narrative: Anant Alston a pleasant 64 year old male presents for evaluation of low back and right hip pain greater than 5 years secondary to OA. pt has failed to benefit from PT, heat, ice, tylenol and NSAIDs. Pain today 6/10 increasing to 10/10 with sitting and after activity. denies falls or injury. currently utilizes tylenol and baclofen prn with mild benefit without side effects, failed celebrex in the past. cc:: CC: Ankita Amor NP Review of Systems ROS Status of ROS 10 or more systems reviewed and unremark able except as noted in history and below Musculoskeletal Reports: back pain and joint pain PFSH [facility] Medical History (Updated 12/27/24 @ 14:15 by Ankita Amor NP) Flank pain ?R10.9 - Unspecified abdominal pain (ICD-10) Seasonal allergies ?J30.2 - Other seasonal allergic rhinitis (ICD-10) Arthritis ?M19.90 - Unspecified osteoarthritis, unspecified site (ICD-10) Back pain ?M54.9 - Dorsalgia, unspecified (ICD-10) Pneumonia ?J18.9 - Pneumonia, unspecified organism (ICD-10) Restless leg ?G25.81 - Restless legs syndrome (ICD-10) Chronic obstructive pulmonary disease ?J44.9 - Chronic obstructive pulmonary disease, unspecified (ICD-10) Kidney stones ?N20.0 - Calculus of kidney (ICD-10) GERD (gastroesophageal reflux disease) ?K21.9 - Gastro-esophageal reflux disease without esophagitis (ICD-10) S/P extracorporeal shock wave therapy ?Z98.890 - Other specified postprocedural states (ICD-10) Surgical History History of colonoscopy ?Z98.890 - Other specified postprocedural states (ICD-10) History of hernia repair ?Z98.890 - Other specified postprocedural states (ICD-10) ?Z87.19 - Personal history of other diseases of the digestive system (ICD-10) S/P cystourethroscopy with dilation of urethral stricture ?Z98.890 - Other specified postprocedural states (ICD-10) S/P cystoscopy ?Z98.890 - Other specified postprocedural states (ICD-10) S/P ureteral stent placement ?Z96.0 - Presence of urogenital implants (ICD-10) Family History Other Family history of COPD (chronic obstructive pulmonary disease) Family history of bone cancer Family history of heart disease Family history of myocardial infarction Family history of stroke Social History Within the past year, how often did you have a drink containing alcohol: 2-3 times a week Within the past year, how many standard drinks containing alcohol did you have on a typical day: 3 or 4 Smoking status: Current every day smoker What tobacco products do you use: cigarettes Packs per day: 1 Years smoked: 40 Smoking pack-years: 40.00 Non-prescribed substance use: cannabis (any form) Previous occupational history: [employer] Highest level of school completed/degree received: high school graduate Meds Home Medications and Allergies Home Medications ?Medication ?Instructions ?Recorded ?Confirmed ?Type budesonide 160 mcg-glycopyr 9 2 inh inhalation DAILY 01/25/24 02/17/24 History mcg-formot 4.8 mcg/actuation HFA inhaler (Breztri Aerosphere) oxcarbazepine 300 mg tablet 300 mg PO BID 01/25/24 02/17/24 History (Trileptal) rosuvastatin 10 mg tablet (Crestor) 10 mg PO DAILY 01/25/24 02/17/24 History Allergies Allergy/AdvReac Type Severity Reaction Status Date / Time amoxicillin Allergy Severe Rash Verified 02/17/24 10:51 cephalexin (From Keflex) Allergy Severe Rash Verified 02/17/24 10:51 Sulfa (Sulfonamide Allergy Rash Verified 02/17/24 10:51 Antibiotics) codeine AdvReac Nausea Verified 02/17/24 10:51 Exam Constitutional Documenting provider has reviewed patient's vital signs: yes Common normals: no apparent distress, oriented x3, healthy appearing, alert and well nourished General appearance: cooperative HENMT Common normals: normocephalic, hearing grossly normal bilaterally and moist oral mucous membranes Head and scalp: normocephalic Eye Common normals: PERRL Pupil: PERRL Neck & C-Spine Common normals: full ROM General: normal visual inspection Chest Common normals: inspection of chest normal Respiratory Common normals: normal respiratory effort, no retractions and no use of accessory muscles Back & Pelvis Lumbar spine/lower back: ROM limited, pain with ROM and lumbar spinal tenderness Lumbar spinal tenderness location: L2 and L3 Sacroiliac joints: SI joint(s) abnormal Other: right positive destin(patricks), gaenslens, thigh thrust, compression test Extremity Common normals: normal to inspection Right lower extremity: hip joint Other: increased right hip pain with internal and external rotation, moderate pain with standing. Neuro Common normals: oriented x3, CN's II-XII intact bilaterally, moves all extremities, no focal motor deficits, no sensory deficits noted and deep tendon reflexes 2+ bilaterally Sensorium/orientation: alert Motor exam: strength 5/5 throughout and no movement abnormalities noted Psych Common normals: mental status grossly normal, thought process normal, cooperative, affect normal, speech normal and activity/motor behavior normal Speech: normal speech Thought process: normal thought process Results Additional Findings Additional findings: If on a controlled substance or opioids, I have checked an [place] report on this patient and there are no aberrancies noted in the prescribing history.??If on a controlled substance or opioid a drug screen was completed and reviewed within the last year, and if there has not been a drug screen completed we ordered one today to monitor higher risk, state monitored pain medication use. As part of providing excellent, safe, comprehensive care, the following was completed at our patient's visit: 1. A medication reconciliation and review to ensure accurate knowledge of current/active medications, including asking our patients to inform us about any ocku-lpt-chrttkq medications or herbal remedies/nutritional supplements/alternative remedies. 2. A review to specifically ensure our patients have had annual screening for screening for depression, screening for tobacco use, and screening for unhealthy alcohol use. For concerning screenings had a discussion with the patient, provided patient education, and recommended follow-up with primary care provider when appropriate. If patient noted with a risk of falling, they received education on strength, gait, and balance training to prevent future risk of falling. Portions of this note may have been carried over from the previous visit and updated as appropriate. Please note this office utilizes paper charting in addition to the electronic medical record. A list of current medications, vitals, and PMH is available there as the clinical staff outside of myself do not have access to [facility] charting during the clinic day operations. As part of providing quality comprehensive care the current medications, vitals, and PMH were reviewed in the paper chart. Assessment and Plan Assessment and Plan (1) Osteoarthritis of right hip: (2) Lumbar spondylosis: Plan update lumbar xray with flexion update right hip xray to assess OA, consider right hip injection under fluoroscopy if moderate-significant OA DC otc nsaids start mobic 7.5mg BID PRN pain take with food PT for low back pain, please provide HEP due to cost continue PRN tylenol and baclofen as ordered by PCP OARRS reviewed, GRIEF COUNSELLOR reviewed and signed. defer UDS f/u 2 weeks after hip injection if ordered based on xray results, f/u 1 month to review response to medications and PT for low back pain
== END 2024-12-27 13:27 | disposition home or self-care (01) ==
LOC: PM 13:26
PROVIDERS: PCP Internal Medicine; Visit Provider Nurse Practitioner
DX: M16.11 Unilateral primary osteoarthritis, right hip (principal); M47.816 Spondylosis without myelopathy or radiculopathy, lumbar region
CPT/HCPCS: G0463

== ENCOUNTER 2024-12-27 14:29 | Outpatient (OUT) | payer BC, SELFPAY ==
--- NOTE | 2024-12-27 14:40 | XR_ITS ---
[address] [place] [id number] Patient Name: ROSARIO BUSBY MRN: [id number] date: 1960 Sex: M Assigned Patient Location: [facility] Current Patient Location: [facility] Accession/Order Number: [id number] Exam Date: 12/27/2024 15:06 Report Date: 12/27/2024 15:07 At the request of: VIKASH HINOJOSA NP Procedure: XR hip RT min 2V 2 views right plain film COMPARISON: None HISTORY: Right hip pain ACUTE FINDINGS: None DEGENERATIVE CHANGE: Adequate hip joint space and bony articular change. No collapse. No AVN. Minimal chondrocalcinosis. SOFT TISSUE FINDINGS: Unremarkable JOINT EFFUSION: None POSTOP CHANGES: None BONY MINERALIZATION: Adequate XR/XR hip RT min 2V IMPRESSION: Unremarkable exam Impression dictated by: Angel Schilling M.D.12/27/2024 3:07 PM Dictation Location: [place] [address] Electronically authenticated by: [id number] Date: 12/27/2024 15:07
--- NOTE | 2024-12-27 14:40 | XR_ITS ---
[place] [id number] Patient Name: ROSARIO BUSBY MRN: [id number] date: 1960 Sex: M Assigned Patient Location: [facility] Current Patient Location: [facility] Accession/Order Number: [id number] Exam Date: 12/27/2024 15:07 Report Date: 12/27/2024 15:09 At the request of: VIKASH HINOJOSA NP Procedure: XR lumbar spine 6V w bending 6 views Lumbar Spinewith bending HISTORY: Chronic right hip pain and low back pain COMPARISON: None POSTSURGICAL CHANGES: None BONY ALIGNMENT: Mild straightening secondary to patient positioning or spasm. HYPERMOBILITY:No hypermobility LISTHESIS:None FRACTURE: None DEGENERATIVE CHANGES: Moderate L5-S1 disc space narrowing. Mild L4-5 disc space narrowing. Anterior endplate spurring. Lower lumbar hypertrophic facet changes SOFT TISSUES: Unremarkable BONY MINERALIZATION:Adequate XR/XR lumbar spine 6V w bending IMPRESSION: No hypermobility. Mild lower lumbar degeneration. Impression dictated by: Angel Schilling M.D.12/27/2024 3:09 PM Dictation [facility] Electronically authenticated by: [id number] Y Date: 12/27/2024 15:09
== END 2024-12-27 14:30 | disposition home or self-care (01) ==
PROVIDERS: PCP Internal Medicine; Visit Provider Nurse Practitioner
DX: M25.511 Pain in right shoulder (principal); M47.816 Spondylosis without myelopathy or radiculopathy, lumbar region; M16.11 Unilateral primary osteoarthritis, right hip; M51.369 Other intervertebral disc degeneration, lumbar region without mention of lumbar back pain or lower extremity pain
CPT/HCPCS: 72114; 73502